=== PATIENT | female | born 1955 | race Caucasian/White ===

== ENCOUNTER 2017-02-25 14:35 | Inpatient (IN) | payer OTHER ==
[2017-02-25] MEDS ORDERED: BABY ASPIRIN 81 MG CHEW PO ONE (14:44)
[2017-02-25] MEDS ORDERED: NITRO-BID 2% UD PACKETS TOP ONE (14:44)
[2017-02-25] MEDS ORDERED: NITRO-BID 2% UD PACKETS ONE (14:56)
[2017-02-25] MEDS ORDERED: BABY ASPIRIN 81 MG CHEW ONE (14:56)
--- NOTE | 2017-02-25 15:07 | ERPHSYRPT ---
- History of Present Illness Time Seen by Provider: 02/25/17 14:42 Historian: patient Exam Limitations: no limitations Physician History: C/O chest pain left breast radiating to right chest for 1 week . Associated with dizziness. Pain is sharp 8/10 intensity now, but has been 10/10 intensity at times this past week. She has risk factor for CAD: Smoking. No cardiac workup or Hx. Timing/Duration: week(s) (1) Activities at Onset: none Quality: sharpness Location: central Severity of Pain-Max: severe Severity of Pain-Current: severe Modifying Factors: Improves With: nothing Associated Symptoms: dizziness Prior Chest Pain/Cardiac Workup: no prior cardiac workup Nitro Today/Relief: no nitro taken today Aspirin Treatment Today: no aspirin today Body Map: 1 - chest pain 2 - Radiating to right chest Allergies/Adverse Reactions: Penicillins Allergy (Severe, Verified 03/02/14 17:15) Hives affected vision, pt stated she couldnt see Sulfa (Sulfonamide Antibiotics) [Sulfa(Sulfonamide Antibiotics)] Allergy ( Intermediate, Verified 03/02/14 17:15) Hives Home Medications: No Home Meds [No Home Meds] 0 tab PO DAILY 03/02/14 [History] Hx Tetanus, Diphtheria Vaccination/Date Given: No (PT UNSURE) Hx Influenza Vaccination/Date Given: No Hx Pneumococcal Vaccination/Date Given: No - Review of Systems Constitutional: No Symptoms Eyes: No Symptoms Ears, Nose, & Throat: No Symptoms Respiratory: No Symptoms Cardiac: Chest Pain Abdominal/Gastrointestinal: No Symptoms, No Vomiting Musculoskeletal: No Symptoms Skin: No Symptoms Neurological: No Symptoms Psychological: No Symptoms Endocrine: No Symptoms Hematologic/Lymphatic: No Symptoms Immunological/Allergic: No Symptoms - Past Medical History Pertinent Past Medical History: Yes Neurological History: No Pertinent History ENT History: No Pertinent History Cardiac History: No Pertinent History Respiratory History: COPD Endocrine Medical History: No Pertinent History Musculoskeletal History: No Pertinent History GI Medical History: No Pertinent History, GERD History: No Pertinent History Psycho-Social History: Depression Female Reproductive Disorders: No Pertinent History - Past Surgical History Past Surgical History: Yes Neuro Surgical History: No Pertinent History Cardiac: No Pertinent History Respiratory: No Pertinent History Gastrointestinal: No Pertinent History Genitourinary: No Pertinent History Female Surgical History: Other Other Surgical History: D&C, TONSILS - Social History Smoking Status: Current every day smoker How long have you smoked: 45 Exposure to second hand smoke: Yes Drug Use: none Patient Lives Alone: No - Female History Hx Now: No - Nursing Vital Signs Nursing Vital Signs: Initial Vital Signs Temperature 97.9 F 02/25/17 14:35 Pulse Rate 67 02/25/17 14:35 Respiratory Rate 28 H 02/25/17 14:35 Blood Pressure 137/60 02/25/17 14:35 O2 Sat by Pulse Oximetry 95 02/25/17 14:35 Pain Scale Pain Intensity 8 - Physical Exam General Appearance: moderate distress Eye Exam: eyes nml inspection, No scleral icterus Ears, Nose, Throat Exam: normal ENT inspection, pharynx normal, moist mucous membranes Neck Exam: normal inspection, non-tender, supple, full range of motion Respiratory Exam: normal breath sounds, chest tenderness, lungs clear, airway intact Cardiovascular Exam: regular rate/rhythm, normal heart sounds, normal peripheral pulses Gastrointestinal/Abdomen Exam: soft, normal bowel sounds, No tenderness Back Exam: normal inspection, normal range of motion Extremity Exam: normal inspection, normal range of motion, pelvis stable Neurologic Exam: alert, oriented x 3, cooperative Skin Exam: normal color, warm, dry SpO2 Interpretation: normal SpO2: 95 - Course Nursing assessment & vital signs reviewed: Yes EKG Interpreted by Me: RATE (78), Sinus Rhythm, NORMAL AXIS Ordered Tests: Active Orders 24 hr Category Date Time Status [employer] STAT Care 02/25/17 14:45 Active EKG-ER Only STAT Care 02/25/17 14:44 Active IV Insertion STAT Care 02/25/17 14:44 Active Oxygen-ED Only NASAL CANNULA 2 lpm Care 02/25/17 14:44 Active CHEST 1 VIEW (PORTABLE) Stat Exams 02/25/17 14:44 Completed CBC W DIFF Stat Lab 02/25/17 15:00 Completed CK-Creatinine Phosphokinase Stat Lab 02/25/17 15:00 Received CMP Stat Lab 02/25/17 15:00 Received D-DIMER QUANTITATION Stat Lab 02/25/17 15:00 Received NT PRO BNP Stat Lab 02/25/17 15:00 Received PROTIME WITH INR Stat Lab 02/25/17 15:00 Received TROPONIN Q3H Lab 02/25/17 14:45 Ordered TROPONIN Q3H Lab 02/25/17 17:45 Ordered TROPONIN Q3H Lab 02/25/17 20:45 Ordered TROPONIN Q3H Lab 02/25/17 23:45 Ordered TROPONIN Q3H Lab 02/26/17 02:45 Ordered Medication Summary Generic Name Dose Route Start Last Admin Trade Name Freq PRN Reason Stop Dose Admin Ceftriaxone Sodium/Dextrose 1 g in 50 mls @ 100 mls/hr 02/25/17 15:24 15:27 Rocephin 1 Gm-D5w 50 Ml Bag IV 02/25/17 15:53 100 mls/hr STAT STA Administration Discontinued Medications Generic Name Dose Route Start Last Admin Trade Name Freq PRN Reason Stop Dose Admin Aspirin 324 mg 02/25/17 14:44 02/25/17 14:56 Baby Aspirin 81 Mg Chew PO 02/25/17 14:45 324 mg STAT ONE Administration Aspirin Confirm 02/25/17 14:56 Baby Aspirin 81 Mg Chew Administered 02/25/17 14:57 Dose 324 mg .ROUTE .STK-MED ONE Ceftriaxone Sodium/Dextrose Confirm 02/25/17 15:25 Rocephin 1 Gm-D5w 50 Ml Bag Administered 02/25/17 15:26 Dose 1 g in 50 mls @ ud IV .STK-MED ONE Nitroglycerin 1 gm 02/25/17 14:44 02/25/17 14:56 Nitro-Bid 2% Ud Packets TOP 02/25/17 14:45 1 gm STAT ONE Administration Nitroglycerin Confirm 02/25/17 14:56 Nitro-Bid 2% Ud Packets Administered 02/25/17 14:57 Dose 1 gm .ROUTE .STK-MED ONE Lab/Rad Data: Laboratory Result Diagrams 02/25/17 15:00 Laboratory Results 02/25/17 Range/Units 15:00 WBC 6.9 (4.0-10.5) K/mm3 RBC 4.23 (4.1-5.4) M/mm3 Hgb 12.6 (12.0-16.0) gm/dl Hct 40.1 (35-47) % MCV 94.8 (78-100) fl MCH 29.8 (26-32) pg MCHC 31.4 L (32-36) g/dl RDW 15.0 H (11.5-14.0) % Plt Count 386 (150-450) K/mm3 MPV 9.7 H (6-9.5) fl Gran % 57.1 (36.0-66.0) % Lymphocytes % 35.3 (24.0-44.0) % Monocytes % 5.6 (0.0-12.0) % Eosinophils % 1.7 (0.00-5.0) % Basophils % 0.3 (0.0-0.4) % Basophils # 0.02 (0-0.4) - Progress Progress: improved Air Movement: good Blood Culture(s) Obtained: Yes Antibiotics given: Yes Discussed with : Anna Counseled pt/family regarding: lab results, diagnosis, rad results - Departure Referrals: AALIYAH WHITTAKER [Primary Care Provider] -
[2017-02-25 15:08] LABS: BASOPHIL % 0.3 % (0.0-0.4); Eosinophil % 1.7 % (0.00-5.0); Granulocytes % 57.1 % (36.0-66.0); Lymphocytes % 35.3 % (24.0-44.0); Mean Cell Volume 94.8 fl (78-100); Mean Corpuscular Hemoglobin 29.8 pg (26-32); Mean Platelet Volume 9.7 fl (6-9.5); Monocytes % 5.6 % (0.0-12.0); Platelet Count 386 K/mm3 (150-450); Red Blood Count 4.23 M/mm3 (4.1-5.4); White Blood Count 6.9 K/mm3 (4.0-10.5)
--- NOTE | 2017-02-25 15:14 | XRAY ---
Indication: Chest pain. Short of breath. Comparison: March 02, 2014. Portable chest demonstrates new subtle right base infiltrate versus atelectasis. Remaining heart and lungs normal. Bony thorax intact.
[2017-02-25 15:24] LABS: INR 0.96 (0.8-3.0); PROTIME 10.8 SECONDS (9.95-12.35)
[2017-02-25] MEDS ORDERED: ROCEPHIN 1 Gm-D5w 50 ml Bag** 1 G/50 ML IVPB IV STA (15:24)
[2017-02-25] MEDS ORDERED: ROCEPHIN 1 Gm-D5w 50 ml Bag** 1 G/50 ML IVPB IV ONE (15:25)
[2017-02-25 15:49] LABS: ALBUMIN 3.1 g/dL (3.4-5.0); ANION GAP 13.8 MEQ/L (5-15); BILIRUBIN,TOTAL 0.4 mg/dL (0.2-1.0); Carbon Dioxide 26.2 mEq/L (21-32); Potassium 4.4 mEq/L (3.5-5.1)
[2017-02-25] MEDS ORDERED: Furosemide 100mg/10 ml Vial IV ONE (16:09)
[2017-02-25] MEDS ORDERED: ENOXAPARIN SODIUM SQ ONE (16:14)
[2017-02-25] MEDS ORDERED: Furosemide 100mg/10 ml Vial ONE (16:14)
[2017-02-25] MEDS ORDERED: ENOXAPARIN SODIUM SQ SCH (16:15)
[2017-02-25] MEDS ORDERED: Zofran 4 MG/2 ML VIAL IV PRN (16:55)
[2017-02-25] MEDS ORDERED: MORPHINE SULFATE 2 MG INJ IV PRN (16:55)
[2017-02-25] MEDS: Zithromax 500 MG/ 250 ML NaCl Premix 500 MG/250 ML IVPB IV SCH (17:33)
[2017-02-25] MEDS: PROVENTIL COMMON CANISTER IH PRN (21:13)
[2017-02-26] MEDS: PROVENTIL COMMON CANISTER IH PRN ×4 (02:54→21:57)
[2017-02-26] MEDS: ENOXAPARIN SODIUM SQ SCH ×2 (05:10→17:01)
[2017-02-26] MEDS: PROVENTIL 2.5 MG/3 ML NEB IH SCH ×3 (07:35→18:57)
--- NOTE | 2017-02-26 09:07 | PCM.HP ---
History of Present Illness - Chief Complaint Chief Complaint: chest pain, pneumonia, possible PE History of Present Illness: is a 61 year old female pt of mine from [facility] who has been short of breath with chest pain for the last 1 week. Chest pain is intermittent, L sided , 8/10, radiating to the neck at times. Causes SOB and palpitations. She was found to have an elevated d-dimer in the ER but as her Cr was 1.4 she could not have a CT of the chest to rule out PE. This morning she is not having chest pain. She is on O2. She does not feel well overall. She is c/o headache in the occiput. She has a chronic cough but no increase over the past few weeks. One week ago she saw the [employer] and was found to have an oral yeast infection, pt thinks due to change in her inhaler. She was started on nystatin and this is when the SILVA and CP started. - Review of Systems Constitutional: Fever (s), Fatigue Ears, Nose, & Throat: Throat Pain, Other (chronic hearing loss on R) Respiratory: Cough (chronic), Short Of Breath (1 wk) Cardiac: Chest Pain, Palpitations Neurological: Headache All Other Systems: Reviewed and Negative Medications & Allergies Home Medications: Home Medication List Albuterol 2.5 mg/3 ml Neb [Proventil 2.5 mg/3 ml Neb] 2.5 mg IH TID PRN PRN 02/25/17 [History Confirmed 02/25/17] Albuterol 8 gm Mdi Hfa [Ventolin Hfa MDI] 2 puff IH Q4HPRN PRN 02/25/17 [ History Confirmed 02/25/17] Nystatin 60 ml [Nystatin SUSPENSION 60 ML] 5 ml PO QID 02/25/17 [History Confirmed 02/25/17] Allergies/Adverse Reactions: Allergies Allergy/AdvReac Type Severity Reaction Status Date / Time Penicillins Allergy Severe Hives Verified 02/25/17 16:47 Sulfa (Sulfonamide Allergy Intermediate Hives Verified 02/25/17 16:47 Antibiotics) [Sulfa(Sulfonamide Antibiotics)] - Past Medical History Past Medical History: Yes Neurological History: No Pertinent History, TIA ENT History: No Pertinent History Cardiac History: No Pertinent History Respiratory History: COPD Endocrine Medical History: No Pertinent History Musculoskelatal History: Arthritis GI Medical History: No Pertinent History, GERD, Ulcer History: No Pertinent History Pyscho-Social History: Depression Reproductive Disorders: No Pertinent History - Female History Are you now?: No - Past Surgical History Past Surgical History: Yes Neuro Surgical History: No Pertinent History Cardiac History: No Pertinent History Respiratory Surgery: No Pertinent History GI Surgical History: No Pertinent History Genitourinary Surgical Hx: No Pertinent History Musculskeletal Surgical Hx: No Pertinent History, Amputation Female Surgical History: Other Other Surgical History: D&C, TONSILS, - Social History Smoking Status: Current every day smoker How long have you smoked: 48years Exposure to second hand smoke: Yes Alcohol: None Drug Use: none - Physical Exam Vital Signs: Vital Signs - 24 hr Temp Pulse Pulse Resp BP Pulse Ox 02/26/17 07:51 75 20 92 L 02/26/17 07:05 98.1 F 66 20 109/52 93 L 02/26/17 04:00 17 02/26/17 03:58 98.0 F 74 17 113/59 90 L 02/26/17 02:54 74 17 02/26/17 00:05 98.5 F 75 20 96/55 93 L 02/26/17 00:00 20 02/25/17 21:13 75 19 94 L 02/25/17 20:10 97.9 F 78 20 98/71 96 02/25/17 20:00 20 02/25/17 17:09 98.3 F 72 18 137/78 95 02/25/17 16:55 98.3 F 72 18 137/78 95 02/25/17 16:45 98.3 F 72 137/78 02/25/17 16:42 98.3 F 72 18 137/78 95 02/25/17 16:29 65 24 103/59 95 02/25/17 15:58 59 L 18 134/70 97 02/25/17 15:57 95 02/25/17 15:41 97 H 24 110/64 97 02/25/17 14:37 95 H 02/25/17 14:35 97.9 F 67 28 H 137/60 95 Oxygen-Last 24 hours O2 Percentage 2 Liters = 28% O2 Percentage 2 Liters = 28% O2 Percentage 2 Liters = 28% O2 Percentage 2 Liters = 28% O2 Percentage 2 Liters = 28% O2 Percentage 2 Liters = 28% O2 Percentage 2 Liters = 28% O2 Percentage 2 Liters = 28% O2 Percentage 2 Liters = 28% O2 Percentage 2 Liters = 28% O2 Percentage 2 Liters = 28% O2 Percentage 2 Liters = 28% General Appearance: no apparent distress Neurologic Exam: alert, oriented x 3, cooperative Eye Exam: eyes nml inspection Ears, Nose, Throat Exam: moist mucous membranes Neck Exam: normal inspection, other (ttp on the L), No lymphadenopathy Respiratory Exam: normal breath sounds, No crackles/rales, No rhonchi, No wheezing Cardiovascular Exam: regular rate/rhythm, normal heart sounds, No murmur Gastrointestinal/Abdomen Exam: soft, No tenderness, No distention, No mass Back Exam: normal inspection Extremity Exam: No pedal edema, No swelling Skin Exam: normal color, warm, dry Results - Labs Lab/Micro Results: Lab Results-Last 24 Hours 02/25/17 02/25/17 02/25/17 Range/Units 18:12 21:00 23:57 Troponin I < 0.017 < 0.017 < 0.017 (0.000-0.056) ng/ml 02/26/17 Range/Units 03:04 Troponin I < 0.017 (0.000-0.056) ng/ml - Other Procedures and Tests Respiratory Therapy 02/25/17 21:00 Respiratory MDI PRN 02/25/17 22:34 Oxygen NASAL CANNULA 2 lpm 02/26/17 07:00 Respiratory Nebulizer BID Assessment/Plan (1) Chest pain Current Visit: Yes Status: Acute Assessment & Plan: Ruling out for NE. Also concerned about PE; she was unable to get a CT due to Creatinine of 1.44, so will get a VQ scan tomorrow. Code(s): R07.9 - CHEST PAIN, UNSPECIFIED (2) Shortness of breath Current Visit: Yes Status: Acute Assessment & Plan: On O2 currently Code(s): R06.02 - SHORTNESS OF BREATH (3) Headache Current Visit: Yes Status: Acute Qualifiers: Headache type: unspecified Headache chronicity pattern: acute headache Intractability: not intractable Qualified Code(s): R51 - Headache Assessment & Plan: new over the past [address] head no contrast. Code(s): R51 - HEADACHE (4) Obesity Current Visit: Yes Status: Acute Qualifiers: Obesity type: due to excess calories Code(s): E66.9 - OBESITY, UNSPECIFIED
[2017-02-26] MEDS ORDERED: MOTRIN 600 MG PO PRN (09:12)
[2017-02-26] MEDS: ROCEPHIN 1 Gm-D5w 50 ml Bag** 1 G/50 ML IVPB IV SCH (09:36)
--- NOTE | 2017-02-26 11:13 | XRAY ---
Indication: Daily headaches for 1-2 weeks. Multiple contiguous axial images obtained through the head without contrast. Comparison: March 02, 2014. Stable minimal periventricular degenerative micro-ischemia bilaterally. No acute intracranial hemorrhage, abnormal extra-axial fluid collection, or mass effect. Real-white matter differentiation preserved. Both lateral ventricles remain prominent unchanged. Third and fourth ventricles remain normal.. Bony calvarium intact. Visualized paranasal sinuses and mastoid air cells are clear. Impression: Stable prominent lateral ventricles and minimal periventricular degenerative micro-ischemia. No new or acute intracranial abnormalities. CT DI 68.98
[2017-02-26] MEDS: Zithromax 500 MG/ 250 ML NaCl Premix 500 MG/250 ML IVPB IV SCH (17:02)
[2017-02-26] MEDS: Lopressor 25MG Tab PO SCH (22:25)
[2017-02-27] MEDS: PROVENTIL COMMON CANISTER IH PRN ×3 (03:21→16:15)
[2017-02-27] MEDS: ENOXAPARIN SODIUM SQ SCH ×2 (05:57→18:04)
[2017-02-27] MEDS: PROVENTIL 2.5 MG/3 ML NEB IH SCH (06:49)
--- NOTE | 2017-02-27 08:47 | PCM.NOTE ---
Date and Time: 02/27/17841 Subjective Assessment: Last night she was complaining of palpitations and had some bigeminy and apparent atrial flutter on telemetry. She received metoprolol 25mg and was improved. She was bradycardic into the 40s, but HR was in the 50s at times even before she started the metoprolol. She has seen a craft recruiter sometime in [facility], over a year ago, she cannot remember who. Still having intermittent SOB. Objective Exam General Appearance: no apparent distress Neurologic Exam: alert, oriented x 3, cooperative Skin Exam: normal color, warm, dry Respiratory Exam: normal breath sounds, lungs clear, wheezing (faint scattered) , other (scattered lung sounds cleared by coughing), No rhonchi, No stridor Cardiovascular Exam: normal heart sounds, bradycardia (reg rhythm), No murmur Gastrointestinal/Abdomen Exam: soft, normal bowel sounds, No tenderness Extremity Exam: No pedal edema, No swelling OBJECTIVE DATA Vital Signs: Vital Signs - 24 hr Temp Pulse Resp BP Pulse Ox 02/27/17 07:00 98.6 F 54 L 18 90/54 92 L 02/27/17 06:51 53 L 20 94 L 02/27/17 03:21 50 L 20 93 L 02/27/17 03:00 98.3 F 52 L 20 114/51 91 L 02/26/17 23:00 98.8 F 54 L 19 94/51 94 L 02/26/17 21:57 61 20 97 02/26/17 19:00 98.5 F 70 19 107/56 93 L 02/26/17 18:57 66 18 94 L 02/26/17 16:00 20 02/26/17 15:46 97.9 F 64 20 105/56 90 L 02/26/17 12:00 20 02/26/17 11:46 98.3 F 70 20 119/56 90 L 02/26/17 10:00 91 H 20 94 L Oxygen-Last 24 hours O2 Percentage 2 Liters = 28% O2 Percentage 2 Liters = 28% O2 Percentage 2 Liters = 28% O2 Percentage 2 Liters = 28% O2 Percentage 2 Liters = 28% O2 Percentage 2 Liters = 28% Pain Assessment - Last Documented Pain Intensity 0 Pain Scale Used 0-10 Pain Scale Intake and Output: Intake & Output 02/24/17 02/25/17 02/26/17 02/27/17 11:59 11:59 11:59 11:59 Intake Total 850 2500 Output Total 3150 700 Balance -2300 1800 Weight 134.808 kg 136.395 kg Radiology Exams: Radiology Procedures Category Date Time Status HEAD WITHOUT CONTRAST [CT] Routine Exams 02/26/17 09:11 Completed PULMONARY PERF VENTILATION [NUCMED] Routine Exams 02/27/17 Ordered Assessment/Plan (1) Chest pain Current Visit: Yes Status: Acute Assessment & Plan: OR ruled out. Await VQ scan today to r/o PE. Code(s): R07.9 - CHEST PAIN, UNSPECIFIED (2) Shortness of breath Current Visit: Yes Status: Acute Assessment & Plan: intermittent. Code(s): R06.02 - SHORTNESS OF BREATH (3) Headache Current Visit: Yes Status: Resolved Qualifiers: Headache type: unspecified Headache chronicity pattern: acute headache Intractability: not intractable Qualified Code(s): R51 - Headache Code(s): R51 - HEADACHE (4) Obesity Current Visit: Yes Status: Chronic Qualifiers: Obesity type: due to excess calories Code(s): E66.9 - OBESITY, UNSPECIFIED (5) Arrhythmia Current Visit: Yes Status: Acute Qualifiers: Arrhythmia type: atrial flutter Atrial flutter type: atypical Qualified Code(s): I48.4 - Atypical atrial flutter Assessment & Plan: Keep pt on telemetry; I await the VQ scan as this may determine whether pt will remain here or be transferred out for further treatment. I may need to speak with cardiology and have the patient follow with them. Code(s): I49.9 - CARDIAC ARRHYTHMIA, UNSPECIFIED
[2017-02-27] MEDS: ROCEPHIN 1 Gm-D5w 50 ml Bag** 1 G/50 ML IVPB IV SCH (09:02)
[2017-02-27] MEDS: Lopressor 25MG Tab PO SCH ×2 (09:05→21:11)
[2017-02-27 09:43] LABS: BASOPHIL % 0.5 % (0.0-0.4); Eosinophil % 1.4 % (0.00-5.0); Granulocytes % 53.3 % (36.0-66.0); Lymphocytes % 38.9 % (24.0-44.0); Mean Cell Volume 95.5 fl (78-100); Mean Platelet Volume 9.9 fl (6-9.5); Monocytes % 5.9 % (0.0-12.0); Platelet Count 345 K/mm3 (150-450); Red Blood Count 3.76 M/mm3 (4.1-5.4); Red Cell Distribution Width 15.1 % (11.5-14.0); White Blood Count 6.3 K/mm3 (4.0-10.5)
[2017-02-27 09:44] LABS: Mean Corpuscular Hemoglobin 29.7 pg (26-32)
[2017-02-27 10:22] LABS: ANION GAP 12.1 MEQ/L (5-15); Carbon Dioxide 29.8 mEq/L (21-32); Potassium 3.8 mEq/L (3.5-5.1)
--- NOTE | 2017-02-27 13:46 | XRAY ---
Indication: Chest pain and short of breath. Comparison: None Patient received 3.9 mCi of technetium 99 microaggregated albumin for the perfusion portion of the exam. Patient inhaled approximately 33.4 mCi of aerosolized technetium 99 DTPA for the ventilation portion. Multiplanar images obtained. Perfusion images demonstrates bilateral homogeneous radiopharmaceutical activity without focal lobar or segmental defects. Ventilation images demonstrates bilaterally heterogeneous radiopharmaceutical activity predominantly more central favoring chronic obstructive disease. There is also small amount of ingested radiopharmaceutical activity in the GI tract. Impression: No perfusion defects to suggest pulmonary embolus. Ventilation images favor chronic obstructive disease.
[2017-02-27] MEDS: Zithromax 500 MG/ 250 ML NaCl Premix 500 MG/250 ML IVPB IV SCH (18:04)
[2017-02-27] MEDS: PROVENTIL COMMON CANISTER IH SCH (19:26)
[2017-02-28 06:01] LABS: Mean Cell Volume 95.5 fl (78-100); Mean Platelet Volume 10.1 fl (6-9.5); Platelet Count 378 K/mm3 (150-450); White Blood Count 6.7 K/mm3 (4.0-10.5)
[2017-02-28 06:20] LABS: Mean Corpuscular Hemoglobin 29.2 pg (26-32)
[2017-02-28 06:37] LABS: ANION GAP 12.8 MEQ/L (5-15); BILIRUBIN,TOTAL 0.3 mg/dL (0.2-1.0); Carbon Dioxide 29.2 mEq/L (21-32); Potassium 4.5 mEq/L (3.5-5.1); Total Protein 7.5 gm/dL (6.4-8.2)
[2017-02-28] MEDS: ENOXAPARIN SODIUM SQ SCH (06:42)
[2017-02-28] MEDS: PROVENTIL COMMON CANISTER IH SCH ×2 (06:51→19:23)
[2017-02-28] MEDS ORDERED: Lopressor 25MG Tab PO SCH (08:40)
--- NOTE | 2017-02-28 08:51 | PCM.NOTE ---
Date and Time: 02/28/17838 Subjective Assessment: she continues to feel poorly. Has not really been up out of bed, aside from going to the bathroom. She is on 2L NC at home. C/o increase in L sided throat pain this morning. Had bradycardia overnight into the 40s and 50s. She states she has a feeling of not being able to wake up when she's asleep, but she cannot explain more than that. Objective Exam General Appearance: no apparent distress Neurologic Exam: alert, oriented x 3, cooperative Skin Exam: normal color, warm, dry Neck Exam: other (L anterior neck ttp, no lesions) Respiratory Exam: normal breath sounds, No crackles/rales, No rhonchi, No wheezing Cardiovascular Exam: regular rate/rhythm, normal heart sounds, No murmur Extremity Exam: No pedal edema, No swelling OBJECTIVE DATA Vital Signs: Vital Signs - 24 hr Temp Pulse Resp BP Pulse Ox 02/28/17 07:00 98.5 F 48 L 18 127/61 92 L 02/28/17 06:56 53 L 18 94 L 02/28/17 04:00 19 02/28/17 03:00 98.1 F 49 L 19 117/62 94 L 02/28/17 00:00 20 02/27/17 23:00 97.7 F 50 L 20 88/53 97 02/27/17 20:00 19 02/27/17 19:30 58 L 18 95 02/27/17 19:00 97.8 F 65 19 116/59 92 L 02/27/17 16:22 53 L 18 95 02/27/17 11:00 97.7 F 56 L 22 109/53 92 L Oxygen-Last 24 hours O2 Percentage 2 Liters = 28% O2 Percentage 2 Liters = 28% O2 Percentage 2 Liters = 28% O2 Percentage 2 Liters = 28% O2 Percentage 2 Liters = 28% Pain Assessment - Last Documented Pain Intensity 0 Pain Scale Used 0-10 Pain Scale Intake and Output: Intake & Output 02/25/17 02/26/17 02/27/17 02/28/17 11:59 11:59 11:59 11:59 Intake Total 850 2500 1020 Output Total 3150 700 550 Balance -2300 1800 470 Weight 134.808 kg 136.395 kg 137.62 kg Lab Results: Lab Results-Last 24 Hours 02/27/17 02/27/17 02/28/17 Range/Units 09:30 09:30 05:20 WBC 6.3 6.7 (4.0-10.5) K/mm3 RBC 3.76 L 4.00 L (4.1-5.4) M/mm3 Hgb 11.2 L 11.7 L (12.0-16.0) gm/dl Hct 35.9 38.2 (35-47) % MCV 95.5 95.5 (78-100) fl MCH 29.7 29.2 (26-32) pg MCHC 31.2 L 30.6 L (32-36) g/dl RDW 15.1 H 15.0 H (11.5-14.0) % Plt Count 345 378 (150-450) K/mm3 MPV 9.9 H 10.1 H (6-9.5) fl Gran % 53.3 (36.0-66.0) % Lymphocytes % 38.9 (24.0-44.0) % Monocytes % 5.9 (0.0-12.0) % Eosinophils % 1.4 (0.00-5.0) % Basophils % 0.5 (0.0-0.4) % Basophils # 0.03 (0-0.4) Sodium 140 (136-145) mEq/L Potassium 3.8 (3.5-5.1) mEq/L Chloride 102 (98-107) mEq/L Carbon Dioxide 29.8 (21-32) mEq/L Anion Gap 12.1 (5-15) MEQ/L BUN 25 H (9-20) mg/dL Creatinine 1.50 H (0.55-1.30) mg/dl Estimated GFR 38 ML/MIN Glucose 159 H (70-110) MG/DL Calcium 9.0 (8.5-10.1) mg/dL Total Bilirubin (0.2-1.0) mg/dL AST (15-37) U/L ALT (12-78) U/L Alkaline Phosphatase (46-116) U/L NT-Pro-B Natriuret Pep 724 H (0-125) pg/ml Serum Total Protein (6.4-8.2) gm/dL Albumin (3.4-5.0) g/dL 02/28/17 Range/Units 05:20 WBC (4.0-10.5) K/mm3 RBC (4.1-5.4) M/mm3 Hgb (12.0-16.0) gm/dl Hct (35-47) % MCV (78-100) fl MCH (26-32) pg MCHC (32-36) g/dl RDW (11.5-14.0) % Plt Count (150-450) K/mm3 MPV (6-9.5) fl Gran % (36.0-66.0) % Lymphocytes % (24.0-44.0) % Monocytes % (0.0-12.0) % Eosinophils % (0.00-5.0) % Basophils % (0.0-0.4) % Basophils # (0-0.4) Sodium 138 (136-145) mEq/L Potassium 4.5 (3.5-5.1) mEq/L Chloride 100 (98-107) mEq/L Carbon Dioxide 29.2 (21-32) mEq/L Anion Gap 12.8 (5-15) MEQ/L BUN 29 H (9-20) mg/dL Creatinine 1.43 H (0.55-1.30) mg/dl Estimated GFR 40 ML/MIN Glucose 95 (70-110) MG/DL Calcium 9.0 (8.5-10.1) mg/dL Total Bilirubin 0.30 (0.2-1.0) mg/dL AST 17 (15-37) U/L ALT 16 (12-78) U/L Alkaline Phosphatase 84 (46-116) U/L NT-Pro-B Natriuret Pep 731 H (0-125) pg/ml Serum Total Protein 7.5 (6.4-8.2) gm/dL Albumin 3.0 L (3.4-5.0) g/dL Radiology Exams: Radiology Procedures Category Date Time Status HEAD WITHOUT CONTRAST [CT] Routine Exams 02/26/17 09:11 Completed PULMONARY PERF VENTILATION [NUCMED] Routine Exams 02/27/17 Completed Multi-Disciplinary Progress Notes: Multi-Disciplinary Progress Notes 02/27/17 15:07 Pharmacy Note by PLANT OPERATOR,PHARM Patient is currently on therapeutic dose Lovenox therapy, 100mg Q12H. VQ Scan negative, does patient still need therapeutic dose? Krys Jean Corrugator Machine Operator Initialized on 02/27/17 15:07 - END OF NOTE Assessment/Plan (1) Arrhythmia Current Visit: Yes Status: Acute Qualifiers: Arrhythmia type: atrial flutter Atrial flutter type: atypical Qualified Code(s): I48.4 - Atypical atrial flutter Assessment & Plan: Better on the toprol, will decrease it however to 12.5 mg po BID due to bradycardia. Code(s): I49.9 - CARDIAC ARRHYTHMIA, UNSPECIFIED (2) Chest pain Current Visit: Yes Status: Acute Assessment & Plan: CT and PE have been ruled out. Code(s): R07.9 - CHEST PAIN, UNSPECIFIED (3) Shortness of breath Current Visit: Yes Status: Acute Assessment & Plan: Will have PT get her up today and see how she does. She's on her home oxygen level. Code(s): R06.02 - SHORTNESS OF BREATH (4) Headache Current Visit: Yes Status: Resolved Qualifiers: Headache type: unspecified Headache chronicity pattern: acute headache Intractability: not intractable Qualified Code(s): R51 - Headache Code(s): R51 - HEADACHE (5) Obesity Current Visit: Yes Status: Chronic Qualifiers: Obesity type: due to excess calories Code(s): E66.9 - OBESITY, UNSPECIFIED (6) Bradycardia Current Visit: Yes Status: Acute Assessment & Plan: Decreasing toprol as above. On telemetry. Code(s): R00.1 - BRADYCARDIA, UNSPECIFIED (7) Throat pain Current Visit: Yes Status: Acute Assessment & Plan: nothing visible on exam, but will resume tx for thrush. Code(s): R07.0 - PAIN IN THROAT
[2017-02-28] MEDS: Nystatin SUSPENSION 60 ML PO SCH ×4 (10:19→22:57)
[2017-02-28] MEDS: ROCEPHIN 1 Gm-D5w 50 ml Bag** 1 G/50 ML IVPB IV SCH (10:19)
[2017-02-28] MEDS: Zithromax 500 MG/ 250 ML NaCl Premix 500 MG/250 ML IVPB IV SCH (17:53)
[2017-03-01] MEDS: PROVENTIL COMMON CANISTER IH SCH (07:25)
[2017-03-01] MEDS: Nystatin SUSPENSION 60 ML PO SCH ×2 (09:23→12:55)
[2017-03-01] MEDS: ROCEPHIN 1 Gm-D5w 50 ml Bag** 1 G/50 ML IVPB IV SCH (09:24)
[2017-03-01] MEDS ORDERED: ENOXAPARIN SODIUM SQ SCH (10:00)
--- NOTE | 2017-03-01 11:46 | PCM.DS ---
Discharge Summary Date of Admission: 02/27/17 08:42 Admitting Physician: AALIYAH WHITTAKER Primary Care Provider: AALIYAH WHITTAKER Allergies Allergies Penicillins Allergy (Severe, Verified 02/25/17 16:47) Hives affected vision, pt stated she couldnt see Sulfa (Sulfonamide Antibiotics) [Sulfa(Sulfonamide Antibiotics)] Allergy ( Intermediate, Verified 02/25/17 16:47) [facility] Summary - Hospital Course Hospital Course: Pt admitted to hospital through the ER with chest pain and shortness of breath; d-dimer found to be elevated. VQ scan was negative for PE. U/S negative for DVTs. She is being treated for pneumonia. She was SOB until yesterday; now she is on her home oxygen dose and breathing is at baseline. She notes she couldn't sleep at night well for some time, had SOB and anxiety when she would sleep; this has resolved. Two days ago she had episodes of palpitations and on telemetry had a 1.9 second pause with an episode characteristic of atrial flutter. She was started on po metoprolol but she became bradycardic and mildly hypotensive so this was discontinued. I did speak with Dr. Montez and she will follow up with him next week in the office. Today she is just feeling tired, no other complaints. - Vitals & Intake/Output Vital Signs: Vital Signs Temperature 98.6 F 03/01/17 07:00 Pulse Rate 60 03/01/17 08:06 Respiratory Rate 20 03/01/17 08:45 Blood Pressure 114/54 03/01/17 07:00 O2 Sat by Pulse Oximetry 93 L 03/01/17 08:06 Oxygen-Last Documented O2 Percentage 2 Liters = 28% Intake & Output: Intake & Output 02/26/17 02/27/17 02/28/17 03/01/17 11:59 11:59 11:59 11:59 Intake Total 1020 720 Output Total 550 670 Balance 470 50 Weight 137.62 kg - Lab Result Diagrams: 02/28/17 05:20 02/28/17 05:20 - Procedures and Test Procedures and Tests throughout Hospitalization: Therapy Orders & Screens 02/28/17 08:51 PT Eval & Treat ( Order) ROUTINE Evaluate: Yes Treat: Yes Reason for Eval:: bruner Diagnosis: symptomatic dysrhythmia Discharge Exam General Appearance: no apparent distress, obese Neurologic Exam: alert, oriented x 3, cooperative Skin Exam: normal color, warm, dry Eye Exam: eyes nml inspection Respiratory Exam: normal breath sounds, lungs clear, prolonged expirations, No rhonchi, No wheezing Cardiovascular Exam: regular rate/rhythm, normal heart sounds, No murmur Gastrointestinal/Abdomen Exam: soft, normal bowel sounds, No tenderness, No distention, No mass Extremity Exam: No pedal edema, No swelling, No tenderness Final Diagnosis/Problem List - Final Discharge Diagnosis/Problem (1) Pneumonia Current Visit: Yes Status: Acute Assessment & Plan: On zithromax and rocephin; will send pt home on omnicef. (2) COPD exacerbation Current Visit: Yes Status: Acute Assessment & Plan: Did not require steroids to treat. No wheezing. (3) Chest pain Current Visit: Yes Status: Acute Assessment & Plan: OH and PE were ruled out. (4) Shortness of breath Current Visit: Yes Status: Chronic Assessment & Plan: Improved. I think likely due to respiratory infection. She will always have some SOB at baseline due to her lung disease. (5) Headache Current Visit: Yes Status: Resolved (6) Obesity Current Visit: Yes Status: Chronic (7) Bradycardia Current Visit: Yes Status: Acute Assessment & Plan: Improved off the metoprolol. (8) Arrhythmia Current Visit: Yes Status: Acute Assessment & Plan: No further arrrhythmia. Had a short episode characteristic of atrial flutter. Was having frequent feeling of palpitations but hasn't had any for the past day or so. Follow up with Dr. Montez next week. (9) Chronic hypoxemic respiratory failure Current Visit: Yes Status: Acute Assessment & Plan: On 2L O2 at home; back to baseline here. (10) Thrush of mouth and esophagus Current Visit: Yes Status: Acute Assessment & Plan: Was on nystatin at home; I stopped it for a few days due to concerns about side effects (pt had already been treated almost a week). She started complaining of throat pain again so I restarted the nystatin yesterday. She is feeling better today. - Discharge Disposition: Home, Self-Care Condition: Stable Prescriptions: New Cefdinir 300 mg PO BID #14 capsule Nystatin 60 ml [Nystatin SUSPENSION 60 ML] 5 ml PO QID 7 Days #1 bottle Continue Albuterol 2.5 mg/3 ml Neb [Proventil 2.5 mg/3 ml Neb] 2.5 mg IH TID PRN PRN PRN Reason: wheezing Albuterol 8 gm Mdi Hfa [Ventolin Hfa MDI] 2 puff IH Q4HPRN PRN PRN Reason: wheezing Nystatin 60 ml [Nystatin SUSPENSION 60 ML] 5 ml PO QID Follow up with: MICHELLE MONTEZ [ACTIVE STAFF] - 03/07/17 11:30 am AALIYAH WHITTAKER [Primary Care Provider] - 03/12/17 10:15 am
[2017-03-01 12:09] VITALS: BP 125/59; PULSE 62; O2SAT 91
== END 2017-03-01 13:30 | disposition home or self-care (01) | DRG 194 ==
LOC: ED 14:35 → MED SURG 16:35 → OBSVTOIN 02-27 08:42
PROVIDERS: ADMIT Family Medicine; ATTEND Family Medicine
DX: J18.9 Pneumonia, unspecified organism (principal); J44.1 Chronic obstructive pulmonary disease with (acute) exacerbation; I48.92 Unspecified atrial flutter; J96.11 Chronic respiratory failure with hypoxia; B37.0 Candidal stomatitis; B37.89 Other sites of candidiasis; R07.9 Chest pain, unspecified; E66.9 Obesity, unspecified; Z99.81 Dependence on supplemental oxygen; Z86.73 Personal history of transient ischemic attack (TIA), and cerebral infarction without residual deficits; M19.90 Unspecified osteoarthritis, unspecified site; K21.9 Gastro-esophageal reflux disease without esophagitis; R07.0 Pain in throat; Z72.0 Tobacco use
CPT/HCPCS: 36000; 36415; 70450; 71010; 78582; 80048; 80053; 82550; 83880; 84484; 85025; 85027; 85379; 85610; 93005; 93041; 93268; 94640; 94760; 96365; 96372; 96374; 96375; 99285; A9540; A9567; G0378; J0456; J0696; J1650; J1940; A9270-GY

== ENCOUNTER 2017-05-12 01:42 | Emergency (ER) | payer OTHER ==
[2017-05-12 02:03] VITALS: O2SAT 96
--- NOTE | 2017-05-12 02:17 | ERPHSYRPT ---
- History of Present Illness Time Seen by Provider: 05/12/17 02:04 Source: patient Exam Limitations: no limitations Patient Subjective Stated Complaint: pt states approx 30 mins [employer] the kitchen chair she was sitting on broke and fell from under her, states she hit her head on a galvanized cooker. reports she did not lose consciousness. states she has severe to pain to the right temporal/ear region. Triage Nursing Assessment: pt is aox3, pupils perrl, pt is short of breath with exertion, which is normal per patient, pt moves all extremities freely, no weakness noted, radial pulses strong and equal, a small knot is palpated behind the right ear. tenderness upon palpation. no open area noted, no bruising seen. Physician History: This is a 61-year-old white female with history of COPD GERD and depression. She arrives with complaint of pain in the right occipital parietal region symptoms since 30 minutes prior to arrival. According to the patient she was sitting in a chair which broke and she struck the back of her head on an old galvanized cooker. Patient states she has pain which she thinks is fairly severe in the right occipital parietal region she states feels like she has a step off and some swelling on the posterior right occipital parietal region. She denies loss of consciousness she denies neck pain. She is not having any sensory deficits. Past medical history includes COPD, GERD, depression. Past surgical history includes D&C, tonsils. Social history includes tobacco use. Timing/Duration: today (30 minutes prior to arrival) Severity: moderate Modifying Factors: Improves With: nothing Associated Symptoms: headaches, other (pain right posterior superoparietal region), No nausea, No vomiting, No abdominal pain, No shortness of breath, No heartburn, No diaphoresis, No cough, No chills, No chest pain, No fever, No loss of appetite, No malaise, No rash, No syncope, No seizure, No weakness Allergies/Adverse Reactions: Penicillins Allergy (Severe, Verified 05/12/17 02:02) Hives affected vision, pt stated she couldnt see Sulfa (Sulfonamide Antibiotics) [Sulfa(Sulfonamide Antibiotics)] Allergy ( Intermediate, Verified 05/12/17 02:02) Hives Home Medications: Albuterol 2.5 mg/3 ml Neb [Proventil 2.5 mg/3 ml Neb] 2.5 mg IH TID PRN PRN 02/25/17 [History] Albuterol 8 gm Mdi Hfa [Ventolin Hfa MDI] 2 puff IH Q4HPRN PRN 02/25/17 [ History] Nystatin 60 ml [Nystatin SUSPENSION 60 ML] 5 ml PO QID 02/25/17 [History] Hx Tetanus, Diphtheria Vaccination/Date Given: No Hx Influenza Vaccination/Date Given: No Hx Pneumococcal Vaccination/Date Given: No Immunizations Up to Date: Yes - Review of Systems Constitutional: No Fever, No Chills Eyes: No Symptoms Ears, Nose, & Throat: No Symptoms Respiratory: No Cough, No Dyspnea Cardiac: No Chest Pain, No Edema, No Syncope Abdominal/Gastrointestinal: No Abdominal Pain, No Nausea, No Vomiting, No Diarrhea Genitourinary Symptoms: No Dysuria Musculoskeletal: Fall, No Back Pain, No Neck Pain Skin: No Rash Neurological: Headache, Other (Pain right posterior occipital parietal region), No Dizziness, No Focal Weakness, No Gait Changes, No Irritability, No Lethargy, No Paralysis, No Parasthesia, No Seizure, No Sensory Changes, No Speech Changes , No Tics, No Tremors, No Vertigo Psychological: No Symptoms Endocrine: No Symptoms All Other Systems: Reviewed and Negative - Past Medical History Pertinent Past Medical History: Yes Neurological History: No Pertinent History, TIA ENT History: No Pertinent History Cardiac History: No Pertinent History Respiratory History: COPD Endocrine Medical History: No Pertinent History Musculoskeletal History: Arthritis GI Medical History: No Pertinent History, GERD, Ulcer History: Renal Disease Psycho-Social History: Depression Female Reproductive Disorders: No Pertinent History - Past Surgical History Past Surgical History: Yes Neuro Surgical History: No Pertinent History Cardiac: No Pertinent History Respiratory: No Pertinent History Gastrointestinal: No Pertinent History Genitourinary: No Pertinent History Musculoskeletal: No Pertinent History, Amputation Female Surgical History: Tubal Ligation, Other Other Surgical History: D&C, TONSILS, - Social History Smoking Status: Current every day smoker How long have you smoked: 48years Exposure to second hand smoke: Yes Drug Use: none Patient Lives Alone: No - Female History Hx Now: No - Nursing Vital Signs Nursing Vital Signs: Initial Vital Signs Temperature 97.7 F 05/12/17 01:46 Pulse Rate 99 H 05/12/17 01:46 Respiratory Rate 24 05/12/17 01:46 Blood Pressure 148/90 05/12/17 01:46 O2 Sat by Pulse Oximetry 96 05/12/17 01:46 Pain Scale Pain Intensity 7 - Physical Exam General Appearance: mild distress, obese, other (right posterior occipital parietal region mild edema , tenderness with palpation), No moderate distress, No severe distress, No alert, No anxiety, No lethargy, No cachetic, No thin Eye Exam: PERRL/EOMI, eyes nml inspection Ears, Nose, Throat Exam: normal ENT inspection, TMs normal, pharynx normal, moist mucous membranes Neck Exam: normal inspection, non-tender, supple, full range of motion Respiratory Exam: normal breath sounds, lungs clear, No respiratory distress Cardiovascular Exam: regular rate/rhythm, normal heart sounds, normal peripheral pulses Gastrointestinal/Abdomen Exam: soft, normal bowel sounds, No tenderness, No mass Back Exam: normal inspection, normal range of motion, No CVA tenderness, No vertebral tenderness Extremity Exam: normal inspection, normal range of motion, pelvis stable Neurologic Exam: alert, oriented x 3, cooperative, normal mood/affect, nml cerebellar function, nml station & gait, sensation nml, No motor deficits Skin Exam: normal color, warm, dry, No rash Lymphatic Exam: No adenopathy SpO2 Interpretation: normal (96%) SpO2: 96 Oxygen Delivery: Room Air - Course Nursing assessment & vital signs reviewed: Yes - CT Exams Head CT Interpretation: Tele-radiologist Report (head CT without contrast: Impression : 1. No intracranial hemorrhage 2. Age-related cerebral volume loss likely related to white matter ischemic disease. 3. Incidental nonacute findings bones unremarkable no acute fracture) Ordered Tests: Active Orders 24 hr Category Date Time Status HEAD WITHOUT CONTRAST [CT] Stat Exams 05/12/17 02:10 Taken - Progress Progress: improved Progress Note: 05/12/17 02:16 61-year-old white female arrives with complaint of moderate pain to her right posterior occipital parietal region symptoms for 30 minutes. Patient states she was sitting in a chair when one of the legs broke she struck the back of her head on an old [employer]. She states she is having moderately severe pain to the right posterior occipital region she has not had any neurologic changes she has no neck pain. She is quite tender with palpation in her right occipital parietal region. Will go ahead and obtain CT of the patient's head. Patient was offered pain medication she states she really doesn't want anything. She states she will take Advil at home. 05/12/17 03:22 Patient doing well neurologically intact vitals are stable. Head CT no bleeds no fractures. Patient has no neck pain. Will discharge - Departure Time of Disposition: 03:22 Departure Disposition: Home Clinical Impression: Accidental fall Qualifiers: Encounter type: initial encounter Qualified Code(s): W19.XXXA - Unspecified fall, initial encounter Head contusion Qualifiers: Encounter type: initial encounter Contusion of head detail: unspecified part of head Qualified Code(s): S00.93XA - Contusion of unspecified part of head, initial encounter Condition: Fair Critical Care Time: No Referrals: AALIYAH WHITTAKER [Primary Care Provider] - Instructions: Prevent Falls Additional Instructions: Return home. Cold packs to area 24-48 hours. Advil every 6 hours as needed for pain. Follow-up with your family doctor if symptoms are worse, no better in 48 hours, or persist longer than one week. Return for acute distress or for severe symptoms.
[2017-05-12 03:05] VITALS: BP 116/76; PULSE 68
--- NOTE | 2017-05-12 08:47 | XRAY ---
Indication: Pain following fall. Multiple contiguous axial images obtained through the head without contrast. Comparison: February 26, 2017. Several images are slightly degraded by motion artifact. Stable age-appropriate global atrophy and minimal periventricular degenerative micro-ischemia bilaterally. No acute intracranial hemorrhage, abnormal extra-axial fluid collection, or mass effect. Fourth ventricle is midline without hydrocephalus. Bony calvarium intact. Visualized paranasal sinuses and mastoid air cells clear. Impression: Motion artifact. Otherwise grossly stable nonacute senile brain. Comment: Preliminary interpretation was made by [facility]. No discrepancy. CT DI 50.38
== END 2017-05-12 03:35 | disposition home or self-care (01) ==
LOC: ED 01:42
DX: S00.93XA Contusion of unspecified part of head, initial encounter (principal); W07.XXXA Fall from chair, initial encounter
CPT/HCPCS: 70450; 99283

== ENCOUNTER 2021-04-22 01:22 | Emergency (ER) | payer OTHER ==
--- NOTE | 2021-04-22 01:55 | ERPHSYRPT ---
- History of Present Illness Time Seen by Provider: 04/22/21 01:43 Historian: patient Exam Limitations: no limitations Patient Subjective Stated Complaint: pt states "I puked 5 times tonight and think it was from the pizza." Triage Nursing Assessment: pt ambulated into the er; pt is axo x4; c/o vomiting; pt denies pain; pt denies diarrhea; pt states that she has had 5 episodes of emesis tonight; pt states that she vomited undigested food; pt has hx GERD; pt states indegestion; abd is obese, round, soft, non tender; pt has hyperactive bowel sounds in all quads; pt states that she had a BM prior to arrival; mucus membrane pink and moist; hypertensive Physician History: 65 years old female with history of tobacco abuse, COPD, GERD presented in the ER with chief complaint of multiple episodes of vomiting tonight with substernal/epigastric burning, mild to moderate earlier and currently no pain. Patient reports "I think it is my pizza but my daughter wants to make sure is not a heart attack". Patient report nonprojectile, nonbilious vomiting and threw up undigested food. Had some abdominal cramping in the upper abdomen earlier but currently no abdominal or chest pain or heartburns. No difficulty breathing. No history of CAD. Timing/Duration: hour(s) (4), intermittent, gradual onset, improved Activities at Onset: rest Quality: burning Location: epigastric Chest Pain Radiation: no radiation Severity of Pain-Max: moderate Severity of Pain-Current: none Associated Symptoms: nausea, vomiting, heartburn Prior Chest Pain/Cardiac Workup: no prior chest pain Nitro Today/Relief: no nitro taken today Aspirin Treatment Today: no aspirin today Allergies/Adverse Reactions: Penicillins Allergy (Severe, Verified 04/22/21 01:30) Hives affected vision, pt stated she couldnt see Sulfa (Sulfonamide Antibiotics) [Sulfa(Sulfonamide Antibiotics)] Allergy (Intermediate, Verified 04/22/21 01:30) Hives Home Medications: Albuterol 2.5 mg/3 ml Neb [Proventil 2.5 mg/3 ml Neb] 2.5 mg IH TID PRN PRN 02/25/17 [History] Albuterol 8 gm Mdi Hfa [Ventolin Hfa MDI] 2 puff IH Q4HPRN PRN 02/25/17 [History] Nystatin 60 ml [Nystatin SUSPENSION 60 ML] 5 ml PO QID 02/25/17 [History] Hx Tetanus, Diphtheria Vaccination/Date Given: No Hx Influenza Vaccination/Date Given: No Hx Pneumococcal Vaccination/Date Given: No Travel Risk - International Travel Have you traveled outside of the country in past 3 weeks: No - Coronavirus Screening Are you exhibiting any of the following symptoms?: Yes Symptoms: Vomiting/Diarrhea Close contact with a COVID-19 positive Pt in past 14-21 Days: No - Vaccine Status Have you recieved a Covid-19 vaccination: No - Review of Systems Constitutional: No Symptoms Eyes: No Symptoms Ears, Nose, & Throat: No Symptoms Respiratory: No Symptoms Cardiac: No Symptoms Abdominal/Gastrointestinal: Nausea, Vomiting Genitourinary Symptoms: No Symptoms Musculoskeletal: No Symptoms Skin: No Symptoms Neurological: No Symptoms Psychological: No Symptoms Endocrine: No Symptoms Hematologic/Lymphatic: No Symptoms Immunological/Allergic: No Symptoms - Past Medical History Pertinent Past Medical History: Yes Neurological History: No Pertinent History, TIA ENT History: No Pertinent History Cardiac History: No Pertinent History Respiratory History: COPD Endocrine Medical History: No Pertinent History Musculoskeletal History: Arthritis GI Medical History: No Pertinent History, GERD, Ulcer History: Renal Disease Psycho-Social History: Depression Female Reproductive Disorders: No Pertinent History - Past Surgical History Past Surgical History: Yes Neuro Surgical History: No Pertinent History Cardiac: No Pertinent History Respiratory: No Pertinent History Gastrointestinal: No Pertinent History Genitourinary: No Pertinent History Musculoskeletal: No Pertinent History Female Surgical History: Tubal Ligation, Other Other Surgical History: D&C, TONSILS, - Social History Smoking Status: Current every day smoker How long have you smoked: 48years Exposure to second hand smoke: Yes Drug Use: none Patient Lives Alone: No - Female History Hx Now: No - Nursing Vital Signs Nursing Vital Signs: Initial Vital Signs Temperature 98.1 F 04/22/21 01:31 Pulse Rate 81 04/22/21 01:31 Respiratory Rate 18 04/22/21 01:31 Blood Pressure 175/86 04/22/21 01:31 O2 Sat by Pulse Oximetry 95 04/22/21 01:31 Pain Scale Pain Intensity 0 - Physical Exam General Appearance: no apparent distress, alert Eye Exam: PERRL/EOMI Ears, Nose, Throat Exam: normal ENT inspection, pharynx normal Neck Exam: normal inspection, non-tender, supple, full range of motion Respiratory Exam: normal breath sounds, lungs clear Cardiovascular Exam: regular rate/rhythm, normal heart sounds Gastrointestinal/Abdomen Exam: soft, normal bowel sounds, No tenderness Back Exam: normal inspection, normal range of motion Extremity Exam: normal inspection, normal range of motion Neurologic Exam: alert, oriented x 3, cooperative Skin Exam: normal color SpO2 Interpretation: normal SpO2: 95 O2 Delivery: Room Air - Course EKG Interpreted by Me: RATE (69), Sinus Rhythm, NORMAL AXIS, NORMAL INTERVALS, NORMAL QRS Ordered Tests: Medication Summary Discontinued Medications Generic Name Dose Route Start Last Admin Trade Name Freq PRN Reason Stop Dose Admin Ondansetron HCl Confirm 04/22/21 02:49 Ondansetron Hcl 4 Mg/2 Ml Vial Administered 04/22/21 02:50 Dose 4 mg .ROUTE .STK-MED ONE Ondansetron HCl 4 mg 04/22/21 02:51 04/22/21 02:51 Ondansetron Hcl 4 Mg/2 Ml Vial IV 04/22/21 02:52 4 mg STAT ONE Administration Pantoprazole Sodium Confirm 04/22/21 02:49 Pantoprazole 40 Mg Vial Administered 04/22/21 02:50 Dose 40 mg IV .STK-MED ONE Pantoprazole Sodium 40 mg 04/22/21 02:50 04/22/21 02:51 Pantoprazole 40 Mg Vial IV 04/22/21 02:51 40 mg STAT ONE Administration Lab/Rad Data: Laboratory Result Diagrams 04/22/21 01:52 04/22/21 01:52 Laboratory Results 04/22/21 04/22/21 04/22/21 Range/Units 04:41 01:52 01:52 WBC (4.0-10.5) K/mm3 RBC (4.1-5.4) M/mm3 Hgb (12.0-16.0) gm/dl Hct (35-47) % MCV (78-100) fl MCH (26-32) pg MCHC (32-36) g/dl RDW (11.5-14.0) % Plt Count (150-450) K/mm3 MPV (7.5-11.0) fl Gran % (36.0-66.0) % Eos # (Auto) (0-0.5) Absolute Lymphs (auto) (1.0-4.6) Absolute Monos (auto) (0.0-1.3) Lymphocytes % (24.0-44.0) % Monocytes % (0.0-12.0) % Eosinophils % (0.00-5.0) % Basophils % (0.0-0.4) % Absolute Granulocytes (1.4-6.9) Basophils # (0-0.4) Sodium 142 (137-145) mmol/L Potassium 4.4 (3.5-5.1) mmol/L Chloride 102 (98-107) mmol/L Carbon Dioxide 29 (22-30) mmol/L Anion Gap 15.2 H (5-15) MEQ/L BUN 27 H (7-17) mg/dL Creatinine 1.44 H (0.52-1.04) mg/dL Estimated GFR 39.0 ML/MIN Glucose 108 H (74-106) mg/dL Calcium 9.7 (8.4-10.2) mg/dL Total Bilirubin 0.60 (0.2-1.3) mg/dL AST 28 (14-36) U/L ALT 17 (0-35) U/L Alkaline Phosphatase 83 (38-126) U/L Troponin I < 0.012 < 0.012 (0.000-0.034) ng/mL NT-Pro-B Natriuret Pep 399 (0-900) pg/mL Serum Total Protein 8.0 (6.3-8.2) g/dL Albumin 4.5 (3.5-5.0) g/dL 04/22/21 Range/Units 01:52 WBC 8.0 (4.0-10.5) K/mm3 RBC 4.52 (4.1-5.4) M/mm3 Hgb 14.0 (12.0-16.0) gm/dl Hct 44.4 (35-47) % MCV 98.2 (78-100) fl MCH 31.0 (26-32) pg MCHC 31.5 L (32-36) g/dl RDW 14.8 H (11.5-14.0) % Plt Count 279 (150-450) K/mm3 MPV 10.5 (7.5-11.0) fl Gran % 63.2 (36.0-66.0) % Eos # (Auto) 0.31 (0-0.5) Absolute Lymphs (auto) 2.13 (1.0-4.6) Absolute Monos (auto) 0.46 (0.0-1.3) Lymphocytes % 26.7 (24.0-44.0) % Monocytes % 5.8 (0.0-12.0) % Eosinophils % 3.9 (0.00-5.0) % Basophils % 0.4 (0.0-0.4) % Absolute Granulocytes 5.06 (1.4-6.9) Basophils # 0.03 (0-0.4) Sodium (137-145) mmol/L Potassium (3.5-5.1) mmol/L Chloride (98-107) mmol/L Carbon Dioxide (22-30) mmol/L Anion Gap (5-15) MEQ/L BUN (7-17) mg/dL Creatinine (0.52-1.04) mg/dL Estimated GFR ML/MIN Glucose (74-106) mg/dL Calcium (8.4-10.2) mg/dL Total Bilirubin (0.2-1.3) mg/dL AST (14-36) U/L ALT (0-35) U/L Alkaline Phosphatase (38-126) U/L Troponin I (0.000-0.034) ng/mL NT-Pro-B Natriuret Pep (0-900) pg/mL Serum Total Protein (6.3-8.2) g/dL Albumin (3.5-5.0) g/dL - Progress Progress: improved Air Movement: fair Progress Note: She is given Protonix and Zofran, on reevaluation feeling better. Negative chest pain work-up including EKG and 2 sets of troponin. In nature does not seem cardiac in more of a acid reflux, started on Protonix and recommended outpatient follow-upWith primary care and cardiology. Blood Culture(s) Obtained: No Antibiotics given: No Counseled pt/family regarding: lab results, diagnosis, need for follow-up, rad results - Departure Departure Disposition: Home Clinical Impression: Atypical chest pain Nausea & vomiting Qualifiers: Vomiting type: unspecified Vomiting Intractability: non-intractable Qualified Code(s): R11.2 - Nausea with vomiting, unspecified Condition: Stable Critical Care Time: No Referrals: AALIYAH TILLMAN [Primary Care Provider] - (Call tomorrow for reevaluation) SHER VALERIO [CONSULTING PHYSICIAN] - (Call tomorrow for appointment) Instructions: Chest Pain That Is Not Caused by the Heart (DC), Nausea and Vomiting, Adult (DC) Additional Instructions: Do not smoke. Take Tylenol as needed for pain. Take Zofran as needed. Continue with Protonix. Follow-up with your primary care for reevaluation and may need follow-up outpatient with cardiology for further evaluation. Return to ER for any worsening. Prescriptions: Ondansetron ODT 4 MG [Zofran Odt 4 mg] 4 mg PO Q6H PRN PRN #6 tablet PRN Reason: Vomiting PANTOPRAZOLE 40 mg Tablet [Protonix 40MG Tablet] 40 mg PO QAM #30 tab
[2021-04-22 01:56] LABS: Absolute Neutrophil Ct (ANC) 5.06 (1.4-6.9); BASOPHIL % 0.4 % (0.0-0.4); Basophil (Absolute #) 0.03 (0-0.4); Eosinophil % 3.9 % (0.00-5.0); Eosinophil (Absolute #) 0.31 (0-0.5); Hematocrit 44.4 % (35-47); Lymphocyte (Absolute #) 2.13 (1.0-4.6); Lymphocytes % 26.7 % (24.0-44.0); Mean Cell Volume 98.2 fl (78-100); Mean Corpuscular Hgb Concent. 31.5 g/dl (32-36); Mean Platelet Volume 10.5 fl (7.5-11.0); Monocyte (Absolute #) 0.46 (0.0-1.3); Monocytes % 5.8 % (0.0-12.0); Neutrophil % 63.2 % (36.0-66.0); Platelet Count 279 K/mm3 (150-450); Red Blood Count 4.52 M/mm3 (4.1-5.4); Red Cell Distribution Width 14.8 % (11.5-14.0)
[2021-04-22 02:14] LABS: ALBUMIN 4.5 g/dL (3.5-5.0); ANION GAP 15.2 MEQ/L (5-15); BILIRUBIN,TOTAL 0.6 mg/dL (0.2-1.3); Calcium 9.7 mg/dL (8.4-10.2); Creatinine 1 1.44 mg/dL (0.52-1.04); Potassium 4.4 mmol/L (3.5-5.1)
[2021-04-22] MEDS ORDERED: PROTONIX 40 MG IV IV ONE ×2 (02:49→02:50)
[2021-04-22] MEDS ORDERED: Zofran 4 MG/2 ML VIAL ONE (02:49)
[2021-04-22] MEDS ORDERED: Zofran 4 MG/2 ML VIAL IV ONE (02:51)
[2021-04-22 05:11] VITALS: BP 136/86; PULSE 73
--- NOTE | 2021-04-22 07:20 | XRAY ---
Indication: Vomiting. Heartburn. Comparison: January 06, 2019. Portable apical lordotic chest remains clear. Heart and mediastinal structures within normal limits. Bony thorax intact with mild osteopenia and degenerative changes. Impression: Continued nonacute chest.
[2021-04-24 23:48] VITALS: O2SAT 95
== END 2021-04-22 05:38 | disposition home or self-care (01) ==
LOC: ED 01:22
DX: R11.2 Nausea with vomiting, unspecified (principal)
CPT/HCPCS: 36000; 36415; 71045; 80053; 83880; 84484; 85025; 93005; 93041; 96374; 96375; 99284; J2405

== ENCOUNTER 2022-04-27 19:08 | Inpatient (IN) | payer OTHER ==
[2022-04-27] MEDS: Sodium Chloride 0.9% 1000 ML 1,000 ML IV SCH (19:31)
--- NOTE | 2022-04-27 19:39 | ERPHSYRPT ---
- History of Present Illness Time Seen by Provider: 04/27/22 19:40 Source: patient, EMS Exam Limitations: clinical condition Patient Subjective Stated Complaint: ems states "she has been sick for 3 days, new productive cough, fever." Triage Nursing Assessment: pt presents to ED via SCAT 1, pt alert and oriented x3, pt c/o new productive cough and fever, pt feels more short of breath lately, pt has hx of copd, pt wears a NC at night but pt unknown of how many liters she wears, pt unknown of color of sputum because per pt "I just swallow what I cough up " Physician History: Patient is a 66-year-old white female with a long history of COPD and end-stage renal disease not yet on dialysis who presents with a 3-day history of productive cough headache and fever. She was noted by EMS to have rales and decreased breath sounds they administered DuoNeb and 125 of Solu-Medrol in route to the ER. On arrival her O2 sat was 91% on 2 L. She was noted to have O2 sats in the upper 80s at home on room air. Timing/Duration: day(s) (3) Activities at Onset: activity Severity of Dyspnea-Max: severe Severity of Dyspnea-Current: severe Possible Cause: frequent episodes Modifying Factors: Improves With: albuterol nebulizer, oxygen Associated Symptoms: cough, wheezing, weakness, chills, productive cough Allergies/Adverse Reactions: Penicillins Allergy (Severe, Verified 04/27/22 19:13) Hives affected vision, pt stated she couldnt see Sulfa (Sulfonamide Antibiotics) [Sulfa(Sulfonamide Antibiotics)] Allergy (Intermediate, Verified 04/27/22 19:13) Hives Home Medications: Albuterol 2.5 mg/3 ml Neb [Proventil 2.5 mg/3 ml Neb] 2.5 mg IH TID PRN PRN 02/25/17 [History] Albuterol 8 gm Mdi Hfa [Ventolin Hfa MDI] 2 puff IH Q4HPRN PRN 02/25/17 [History] Nystatin 60 ml [Nystatin SUSPENSION 60 ML] 5 ml PO QID 02/25/17 [History] Hx Tetanus, Diphtheria Vaccination/Date Given: No Hx Influenza Vaccination/Date Given: No Hx Pneumococcal Vaccination/Date Given: No Immunizations Up to Date: No Travel Risk - International Travel Have you traveled outside of the country in past 3 weeks: No - Coronavirus Screening Are you exhibiting any of the following symptoms?: Yes Symptoms: Fever, Cough: New Onset, Shortness of Breath Close contact with a COVID-19 positive Pt in past 14-21 Days: No - Vaccine Status Have you recieved a Covid-19 vaccination: No - Review of Systems Constitutional: Fever, No Chills Eyes: No Symptoms Ears, Nose, & Throat: No Symptoms Respiratory: Cough, Dyspnea, Dyspnea on Exertion (FOSTER), Wheezing Cardiac: No Chest Pain, No Edema, No Syncope Abdominal/Gastrointestinal: No Abdominal Pain, No Nausea, No Vomiting, No Diarrhea Genitourinary Symptoms: No Dysuria Musculoskeletal: No Back Pain, No Neck Pain Skin: No Rash Neurological: No Dizziness, No Focal Weakness, No Sensory Changes Psychological: No Symptoms Endocrine: No Symptoms All Other Systems: Reviewed and Negative - Past Medical History Pertinent Past Medical History: Yes Neurological History: No Pertinent History, TIA ENT History: No Pertinent History Cardiac History: No Pertinent History Respiratory History: COPD Endocrine Medical History: No Pertinent History Musculoskeletal History: Arthritis GI Medical History: No Pertinent History, GERD, Ulcer History: Renal Disease Psycho-Social History: Depression Female Reproductive Disorders: No Pertinent History - Past Surgical History Past Surgical History: Yes Neuro Surgical History: No Pertinent History Cardiac: No Pertinent History Respiratory: No Pertinent History Gastrointestinal: No Pertinent History Genitourinary: No Pertinent History Musculoskeletal: No Pertinent History Female Surgical History: Tubal Ligation, Other Other Surgical History: D&C, TONSILS, - Social History Smoking Status: Current every day smoker How long have you smoked: 48years Exposure to second hand smoke: Yes Drug Use: none Patient Lives Alone: No - Nursing Vital Signs Nursing Vital Signs: Initial Vital Signs Temperature 101.5 F 04/27/22 19:14 Pulse Rate 95 H 04/27/22 19:14 Respiratory Rate 24 04/27/22 19:14 Blood Pressure 105/84 04/27/22 19:14 O2 Sat by Pulse Oximetry 96 04/27/22 19:14 Pain Scale Pain Intensity 0 - Physical Exam General Appearance: moderate distress, alert Eye Exam: PERRL/EOMI Neck Exam: normal inspection, supple Respiratory Exam: respiratory distress, diminished breath sounds, crackles/rales, rhonchi, wheezing Cardiovascular/Chest Exam: normal heart sounds, regular rate/rhythm Abdominal/Gastrointestinal Exam: soft, No tenderness, No distention, No mass Extremity Exam: non-tender, normal range of motion, normal inspection, no calf tenderness, no pedal edema Neurologic Exam: alert, oriented x 3, cooperative, 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, sensation nml, No motor deficits Skin Exam: normal color, warm, No dry SpO2 Interpretation: normal SpO2: 95 O2 Delivery: Room Air - Course Nursing assessment & vital signs reviewed: Yes EKG Interpreted by Me: RATE (97), Sinus Rhythm, Left Milton Deviation, NORMAL INTERVALS, NORMAL QRS, Non-specific ST Changes, Other (Bilateral atrial enlargement) - Radiology Exams Chest X-ray Interpretation: Interpreted by me, Other (Chronic changes and questionable opacities in the left lung base.) Ordered Tests: Active Orders 24 hr Category Date Time Status Installation Tech STAT Care 04/27/22 19:15 Active EKG-ER Only STAT Care 04/27/22 19:13 Active IV Insertion STAT Care 04/27/22 19:13 Active IV Insertion-2nd Peripheral STAT Care 04/27/22 19:25 Active Oxygen-ED Only Nasal Cannula 4 lpm Care 04/27/22 19:26 Active CHEST 1 VIEW (PORTABLE) Stat Exams 04/27/22 19:14 Taken BLOOD CULTURE Stat Lab 04/27/22 20:08 Received CBC W DIFF Stat Lab 04/27/22 20:08 Completed CMP Stat Lab 04/27/22 20:25 Completed D-DIMER QUANTITATIVE Stat Lab 04/27/22 20:08 Completed Lactic Acid Stat Lab 04/27/22 19:30 Completed Manual Differential NC Stat Lab 04/27/22 20:08 Completed NT PRO BNP Routine Lab 04/27/22 20:08 Completed PROTIME WITH INR Stat Lab 04/27/22 20:08 Completed TROPONIN Q4H Lab 04/27/22 20:08 Completed TROPONIN Q4H Lab 04/27/22 23:15 Ordered TROPONIN Q4H Lab 04/28/22 03:15 Ordered UA W/RFX CULTURE Stat Lab 04/27/22 Ordered Medication Summary Generic Name Dose Route Start Last Admin Trade Name Freq PRN Reason Stop Dose Admin Sodium Chloride 1,000 mls @ 100 mls/hr 04/27/22 19:15 04/27/22 19:31 Sodium Chloride 0.9% 1000 Ml IV 05/27/22 19:14 100 mls/hr .Q10H PAMELA Administration Discontinued Medications Generic Name Dose Route Start Last Admin Trade Name Adonay PRN Reason Stop Dose Admin Acetaminophen 1,000 mg 04/27/22 20:24 04/27/22 20:27 Acetaminophen 500 Mg Tablet PO 04/27/22 20:25 1,000 mg STAT STA Administration Acetaminophen Confirm 04/27/22 20:26 Acetaminophen 500 Mg Tablet Administered 04/27/22 20:27 Dose 1,000 mg .ROUTE .MMIT-MED ONE Lab/Rad Data: Laboratory Result Diagrams 04/27/22 20:08 04/27/22 20:25 Laboratory Results 04/27/22 04/27/22 04/27/22 Range/Units 20:25 20:08 20:08 WBC (4.0-10.5) x10^3/uL RBC (4.1-5.4) x10^6/uL Hgb (12.0-16.0) g/dL Hct (35-47) % MCV (78-100) fL MCH (26-32) pg MCHC (32-36) g/dL RDW (11.5-14.0) % Plt Count (150-450) x10^3/uL MPV (7.5-11.0) fL PT 10.3 (9.4-12.5) SECONDS INR 0.97 (0.8-3.0) D-Dimer 2.28 H* (0.0-0.50) mg/L Sodium 135 L (137-145) mmol/L Potassium 5.1 (3.5-5.1) mmol/L Chloride 106 (98-107) mmol/L Carbon Dioxide 20 L (22-30) mmol/L Anion Gap 14.4 (5-15) MEQ/L BUN 57 H (7-17) mg/dL Creatinine 2.69 H (0.52-1.04) mg/dL Estimated GFR 18.9 ML/MIN Glucose 103 (74-106) mg/dL Lactic Acid (0.4-2.0) Calcium 8.2 L (8.4-10.2) mg/dL Total Bilirubin 0.70 (0.2-1.3) mg/dL AST 74 H (14-36) U/L ALT 46 H (0-35) U/L Alkaline Phosphatase 78 (38-126) U/L Troponin I 0.040 H* (0.000-0.034) ng/mL NT-Pro-B Natriuret Pep 850 (0-900) pg/mL Serum Total Protein 8.0 (6.3-8.2) g/dL Albumin 4.1 (3.5-5.0) g/dL Influenza Type A Ag (NEGATIVE) Influenza Type B Ag (NEGATIVE) RSV (PCR) (Negative) SARS-CoV-2 (PCR) (NEGATIVE) 04/27/22 04/27/22 04/27/22 Range/Units 20:08 20:06 19:30 WBC 5.1 (4.0-10.5) x10^3/uL RBC 4.78 (4.1-5.4) x10^6/uL Hgb 14.1 (12.0-16.0) g/dL Hct 46.2 (35-47) % MCV 96.7 (78-100) fL MCH 29.5 (26-32) pg MCHC 30.5 L (32-36) g/dL RDW 15.5 H (11.5-14.0) % Plt Count 173 (150-450) x10^3/uL MPV 11.1 H (7.5-11.0) fL PT (9.4-12.5) SECONDS INR (0.8-3.0) D-Dimer (0.0-0.50) mg/L Sodium (137-145) mmol/L Potassium (3.5-5.1) mmol/L Chloride (98-107) mmol/L Carbon Dioxide (22-30) mmol/L Anion Gap (5-15) MEQ/L BUN (7-17) mg/dL Creatinine (0.52-1.04) mg/dL Estimated GFR ML/MIN Glucose (74-106) mg/dL Lactic Acid 0.9 (0.4-2.0) Calcium (8.4-10.2) mg/dL Total Bilirubin (0.2-1.3) mg/dL AST (14-36) U/L ALT (0-35) U/L Alkaline Phosphatase (38-126) U/L Troponin I (0.000-0.034) ng/mL NT-Pro-B Natriuret Pep (0-900) pg/mL Serum Total Protein (6.3-8.2) g/dL Albumin (3.5-5.0) g/dL Influenza Type A Ag NEGATIVE (NEGATIVE) Influenza Type B Ag NEGATIVE (NEGATIVE) RSV (PCR) NEGATIVE (Negative) SARS-CoV-2 (PCR) POSITIVE A (NEGATIVE) - Progress Progress: unchanged Air Movement: fair Blood Culture(s) Obtained: Yes Antibiotics given: No - Departure Departure Disposition: Home Clinical Impression: COVID Condition: Serious Critical Care Time: No Referrals: AALIYHA TILLMAN [Primary Care Provider] - Follow up/PCP as directed
[2022-04-27 20:14] LABS: Hematocrit 46.2 % (35-47); Hemoglobin 14.1 g/dL (12.0-16.0); Mean Cell Volume 96.7 fL (78-100); Mean Corpuscular Hemoglobin 29.5 pg (26-32); Mean Corpuscular Hgb Concent. 30.5 g/dL (32-36); Mean Platelet Volume 11.1 fL (7.5-11.0); Platelet Count 173 x10^3/uL (150-450); Red Blood Count 4.78 x10^6/uL (4.1-5.4); Red Cell Distribution Width 15.5 % (11.5-14.0); White Blood Count 5.1 x10^3/uL (4.0-10.5)
[2022-04-27] MEDS ORDERED: TYLENOL EXTRA STRENGTH 500 MG PO STA (20:24)
[2022-04-27] MEDS ORDERED: TYLENOL EXTRA STRENGTH 500 MG ONE (20:26)
[2022-04-27 20:49] LABS: INR 0.97 (0.8-3.0); PROTIME 10.3 SECONDS (9.4-12.5)
[2022-04-27 20:50] LABS: ALBUMIN 4.1 g/dL (3.5-5.0); ANION GAP 14.4 MEQ/L (5-15); BILIRUBIN,TOTAL 0.7 mg/dL (0.2-1.3); Calcium 8.2 mg/dL (8.4-10.2); Creatinine 1 2.69 mg/dL (0.52-1.04); EST GLOMERULAR FILTRATION RATE 18.9 ML/MIN; Potassium 5.1 mmol/L (3.5-5.1)
[2022-04-27 20:51] LABS: INFLUENZA A NEGATIVE (NEGATIVE); INFLUENZA B NEGATIVE (NEGATIVE); RESPIRATORY SYNCTIAL VIRUS NEGATIVE (Negative)
[2022-04-27 20:53] LABS: D-DIMER QUANTITATIVE 2.28 mg/L (0.0-0.50)
[2022-04-27 20:54] LABS: SARS-CoV-2 Xpert Express POSITIVE (NEGATIVE)
[2022-04-27 21:08] LABS: TROPONIN 0.04 ng/mL (0.000-0.034)
[2022-04-27 21:52] LABS: BAND 4 % (0.0-2.0); Lymphocytes 28 % (24-44); Monocyte 4 % (0.0-12.0); Platelet Estimate NORMAL (NORMAL); Total Cells Counted 100
[2022-04-28] MEDS ORDERED: Ativan 1 MG PO PRN (00:01)
[2022-04-28] MEDS ORDERED: HYDROCODONE-CHLORPHEN ER SUSP PO PRN (00:01)
[2022-04-28] MEDS ORDERED: REMDESIVIR 200 MG in Sodium Chloride 0.9% 250 ML 250 ML IV ONE (00:01)
[2022-04-28] MEDS ORDERED: Zofran 4 MG/2 ML VIAL IV PRN (00:01)
[2022-04-28] MEDS ORDERED: Sodium Chloride 0.9% 250 ML 250 ML IV ONE (00:12)
[2022-04-28] MEDS ORDERED: REMDESIVIR IV ONE (00:12)
[2022-04-28 03:55] LABS: ANION GAP 14.9 MEQ/L (5-15); Calcium 7.6 mg/dL (8.4-10.2); Creatinine 1 2.37 mg/dL (0.52-1.04); EST GLOMERULAR FILTRATION RATE 21.8 ML/MIN; PREALBUMIN 7.32 mg/dL (17.6-36.0); Potassium 5.1 mmol/L (3.5-5.1)
[2022-04-28 04:16] LABS: Hematocrit 40.2 % (35-47); Hemoglobin 12.5 g/dL (12.0-16.0); Mean Cell Volume 96.6 fL (78-100); Mean Corpuscular Hgb Concent. 31.1 g/dL (32-36); Mean Platelet Volume 11.1 fL (7.5-11.0); Platelet Count 157 x10^3/uL (150-450); Red Blood Count 4.16 x10^6/uL (4.1-5.4); Red Cell Distribution Width 15.8 % (11.5-14.0); White Blood Count 3.1 x10^3/uL (4.0-10.5)
[2022-04-28] MEDS: Ativan 2 MG/1 ML VIAL IV PRN ×4 (04:51→17:23)
[2022-04-28] MEDS ORDERED: VENTOLIN COMMON CANISTER IH PRN (05:00)
[2022-04-28] MEDS: ENOXAPARIN SODIUM SQ SCH (07:49)
[2022-04-28] MEDS: DECADRON 10MG INJ. IV SCH (07:49)
[2022-04-28] MEDS: Sodium Chloride 0.9% 1000 ML 1,000 ML IV SCH ×2 (07:50→17:53)
--- NOTE | 2022-04-28 07:52 | XRAY ---
Indication: Fever. Short of breath. Comparison: April 22, 2021 Portable chest demonstrates new subtle patchy bilateral mid to lower lung airspace opacities and tiny right effusion. Heart not enlarged. Bony thorax intact again with mild osteopenia and degenerative changes. Comment: Lung findings not reported by the interpreting ER physician. Telephone report was given to Dr. Frias at 0746 hours on April 28, 2022.
[2022-04-28 08:13] LABS: Appearance CLEAR (CLEAR); Bilirubin NEGATIVE (NEGATIVE); Glucose NEGATIVE (NEGATIVE); Ketones NEGATIVE (NEGATIVE); Ph 5.5 (5-6); RBC MODERATE Ery/ul (0-5)
[2022-04-28 08:14] LABS: Dipstick done @ ? MAIN LAB; Nitrite NEGATIVE (NEGATIVE); Protein,Urine Dip 100 (Negative); Urobilinogen 0.2 mg/dL (0-1)
[2022-04-28 08:18] LABS: Bacteria FEW /HPF (NEGATIVE); Mucus SLIGHT /HPF (NEGATIVE); RBC 0-2 /HPF (0-2); WBC 51-100 /HPF (0-5)
[2022-04-28 08:22] LABS: Urine Cultured Indicated? YES
[2022-04-28] MEDS: PROTONIX 40 MG IV IV SCH (09:05)
[2022-04-28] MEDS ORDERED: Zithromax 500 MG/ 250 ML NaCl Premix 500 MG/250 ML IVPB IV SCH ×2 (10:00→22:00)
[2022-04-28] MEDS ORDERED: ROCEPHIN 1 Gm-D5w 50 ml Bag** 1 G/50 ML IVPB IV SCH ×2 (10:00→22:00)
[2022-04-28] MEDS ORDERED: ENOXAPARIN SODIUM SQ SCH (10:00)
[2022-04-28] MEDS ORDERED: MORPHINE SULFATE 4 MG INJ IV PRN (12:13)
--- NOTE | 2022-04-28 13:14 | PCM.HP ---
History of Present Illness - Chief Complaint Chief Complaint: shortness of breath for 2-3 days History of Present Illness: is a 66 year old female.with a long history of COPD and end-stage renal disease not yet on dialysis who presents with a 3-day history of productive cough headache and fever. She was noted by EMS to have rales and decreased breath sounds they administered DuoNeb and 125 of Solu-Medrol in route to the ER. On arrival her O2 sat was 91% on 2 L. She was noted to have O2 sats in the upper 80s at home on room air. Timing/Duration: day(s) (3) Activities at Onset: activity Severity of Dyspnea-Max: severe Severity of Dyspnea-Current: severe Possible Cause: frequent episodes Modifying Factors: Improves With: albuterol nebulizer, oxygen Associated Symptoms: cough, wheezing, weakness, chills, productive cough - Review of Systems Constitutional: Fever, Fatigue, No Chills Eyes: No Symptoms Ears, Nose, & Throat: No Symptoms Respiratory: Cough, Short Of Breath, Wheezing Cardiac: No Chest Pain, No Edema, No Syncope Abdominal/Gastrointestinal: No Abdominal Pain, No Nausea, No Vomiting, No Diarrhea Genitourinary Symptoms: No Dysuria Musculoskeletal: No Back Pain, No Neck Pain Skin: No Rash Neurological: No Dizziness, No Focal Weakness, No Sensory Changes Psychological: No Symptoms Endocrine: No Symptoms Hematologic/Lymphatic: No Symptoms Immunological/Allergic: No Symptoms Medications & Allergies Home Medications: Home Medication List No Reportable Medications [No Reported Medications] 04/28/22 [History Confirmed 04/28/22] Allergies/Adverse Reactions: Allergies Allergy/AdvReac Type Severity Reaction Status Date / Time Penicillins Allergy Severe Hives Verified 04/27/22 19:13 Sulfa (Sulfonamide Allergy Intermediate Hives Verified 04/27/22 19:13 Antibiotics) [Sulfa(Sulfonamide Antibiotics)] - Past Medical History Past Medical History: Yes Neurological History: No Pertinent History, TIA ENT History: No Pertinent History Cardiac History: No Pertinent History Respiratory History: COPD Endocrine Medical History: No Pertinent History Musculoskelatal History: Arthritis GI Medical History: No Pertinent History, GERD, Ulcer History: Renal Disease Pyscho-Social History: Depression Reproductive Disorders: No Pertinent History - Female History Are you now?: No - Past Surgical History Past Surgical History: Yes Neuro Surgical History: No Pertinent History Cardiac History: No Pertinent History Respiratory Surgery: No Pertinent History GI Surgical History: No Pertinent History Genitourinary Surgical Hx: No Pertinent History Musculskeletal Surgical Hx: No Pertinent History Female Surgical History: Tubal Ligation, Other Other Surgical History: D&C, TONSILS, - Social History Smoking Status: Current every day smoker How long have you smoked: 48years Exposure to second hand smoke: Yes Alcohol: None Drug Use: none - Physical Exam Vital Signs: Vital Signs - 24 hr Temp Pulse Resp BP Pulse Ox 04/28/22 12:00 16 04/28/22 11:44 97.7 F 51 L 16 133/69 98 04/28/22 09:57 49 L 14 99 04/28/22 08:00 96.9 F 60 18 120/71 98 04/28/22 07:59 19 04/28/22 07:47 98 04/28/22 06:00 50 L 26 H 96 04/28/22 05:10 67 19 95 04/28/22 04:51 66 28 H 04/28/22 04:00 97.9 F 87 19 118/71 90 L 04/28/22 01:53 56 L 26 H 92 L 04/28/22 01:44 20 04/28/22 00:32 69 24 90 L 04/28/22 00:06 91 L 04/28/22 00:00 99.5 F 65 18 103/55 91 L 04/27/22 21:52 75 23 96 04/27/22 21:31 95 04/27/22 21:00 74 20 116/61 96 04/27/22 20:10 88 24 101/67 95 04/27/22 19:21 22 95 04/27/22 19:14 101.5 F 95 H 24 105/84 96 Oxygen-Last 24 hours Oxygen Flowrate (L/min)-RT 4 General Appearance: moderate distress, alert Neurologic Exam: alert, oriented x 3, cooperative, normal mood/affect, nml cerebellar function, nml station & gait, sensation nml, No motor deficits Eye Exam: PERRL/EOMI, eyes nml inspection Ears, Nose, Throat Exam: normal ENT inspection, TMs normal, pharynx normal, moist mucous membranes Neck Exam: normal inspection, non-tender, supple, full range of motion Respiratory Exam: respiratory distress, diminished breath sounds, accessory muscle use, prolonged expirations, crackles/rales, rhonchi, wheezing Cardiovascular Exam: normal heart sounds, normal peripheral pulses, tachycardia Gastrointestinal/Abdomen Exam: soft, normal bowel sounds, No tenderness, No mass Back Exam: normal inspection, normal range of motion, No CVA tenderness, No vertebral tenderness Extremity Exam: normal inspection, normal range of motion, pelvis stable Skin Exam: normal color, warm, dry, No rash Lymphatic Exam: No adenopathy Results - Labs Lab/Micro Results: Lab Results-Last 24 Hours 04/27/22 04/27/22 04/27/22 Range/Units 19:30 20:06 20:08 WBC 5.1 (4.0-10.5) x10^3/uL RBC 4.78 (4.1-5.4) x10^6/uL Hgb 14.1 (12.0-16.0) g/dL Hct 46.2 (35-47) % MCV 96.7 (78-100) fL MCH 29.5 (26-32) pg MCHC 30.5 L (32-36) g/dL RDW 15.5 H (11.5-14.0) % Plt Count 173 (150-450) x10^3/uL MPV 11.1 H (7.5-11.0) fL Segmented Neutrophils 64 (36.0-66.0) % Band Neutrophils 4 H (0.0-2.0) % Lymphocytes (Manual) 28 (24-44) % Monocytes (Manual) 4 (0.0-12.0) % Platelet Estimate NORMAL (NORMAL) RBC Morphology NORMAL PT (9.4-12.5) SECONDS INR (0.8-3.0) D-Dimer (0.0-0.50) mg/L Sodium (137-145) mmol/L Potassium (3.5-5.1) mmol/L Chloride (98-107) mmol/L Carbon Dioxide (22-30) mmol/L Anion Gap (5-15) MEQ/L BUN (7-17) mg/dL Creatinine (0.52-1.04) mg/dL Estimated GFR ML/MIN Glucose (74-106) mg/dL POC Glucometer (74 to 106) mg/dL Lactic Acid 0.9 (0.4-2.0) Calcium (8.4-10.2) mg/dL Total Bilirubin (0.2-1.3) mg/dL AST (14-36) U/L ALT (0-35) U/L Alkaline Phosphatase (38-126) U/L Troponin I (0.000-0.034) ng/mL NT-Pro-B Natriuret Pep (0-900) pg/mL Serum Total Protein (6.3-8.2) g/dL Albumin (3.5-5.0) g/dL Prealbumin (17.6-36.0) mg/dL Urinalys Dipstick Clnc Urine Color (YELLOW) Urine Appearance (CLEAR) Urine pH (5-6) Ur Specific Ehrenberg (1.005-1.025) POC Urine Protein Conf (Negative) Urine Ketones (NEGATIVE) Urine Nitrite (NEGATIVE) Urine Bilirubin (NEGATIVE) Urine Urobilinogen (0-1) mg/dL Urine Leukocytes (NEGATIVE) Urine WBC (Auto) (0-5) /HPF Urine RBC (Auto) (0-2) /HPF U Epithel Cells (Auto) (FEW) /HPF Urine Bacteria (Auto) (NEGATIVE) /HPF Urine RBC (0-5) Bart/ul Urine Mucus (Auto) (NEGATIVE) /HPF Ur Culture Indicated? Urine Glucose (NEGATIVE) mg/dL Influenza Type A Ag NEGATIVE (NEGATIVE) Influenza Type B Ag NEGATIVE (NEGATIVE) RSV (PCR) NEGATIVE (Negative) SARS-CoV-2 (PCR) POSITIVE A (NEGATIVE) 04/27/22 04/27/22 04/27/22 Range/Units 20:08 20:08 20:25 WBC (4.0-10.5) x10^3/uL RBC (4.1-5.4) x10^6/uL Hgb (12.0-16.0) g/dL Hct (35-47) % MCV (78-100) fL MCH (26-32) pg MCHC (32-36) g/dL RDW (11.5-14.0) % Plt Count (150-450) x10^3/uL MPV (7.5-11.0) fL Segmented Neutrophils (36.0-66.0) % Band Neutrophils (0.0-2.0) % Lymphocytes (Manual) (24-44) % Monocytes (Manual) (0.0-12.0) % Platelet Estimate (NORMAL) RBC Morphology PT 10.3 (9.4-12.5) SECONDS INR 0.97 (0.8-3.0) D-Dimer 2.28 H* (0.0-0.50) mg/L Sodium 135 L (137-145) mmol/L Potassium 5.1 (3.5-5.1) mmol/L Chloride 106 (98-107) mmol/L Carbon Dioxide 20 L (22-30) mmol/L Anion Gap 14.4 (5-15) MEQ/L BUN 57 H (7-17) mg/dL Creatinine 2.69 H (0.52-1.04) mg/dL Estimated GFR 18.9 ML/MIN Glucose 103 (74-106) mg/dL POC Glucometer (74 to 106) mg/dL Lactic Acid (0.4-2.0) Calcium 8.2 L (8.4-10.2) mg/dL Total Bilirubin 0.70 (0.2-1.3) mg/dL AST 74 H (14-36) U/L ALT 46 H (0-35) U/L Alkaline Phosphatase 78 (38-126) U/L Troponin I 0.040 H* (0.000-0.034) ng/mL NT-Pro-B Natriuret Pep 850 (0-900) pg/mL Serum Total Protein 8.0 (6.3-8.2) g/dL Albumin 4.1 (3.5-5.0) g/dL Prealbumin (17.6-36.0) mg/dL Urinalys Dipstick Clnc Urine Color (YELLOW) Urine Appearance (CLEAR) Urine pH (5-6) Ur Specific Ehrenberg (1.005-1.025) POC Urine Protein Conf (Negative) Urine Ketones (NEGATIVE) Urine Nitrite (NEGATIVE) Urine Bilirubin (NEGATIVE) Urine Urobilinogen (0-1) mg/dL Urine Leukocytes (NEGATIVE) Urine WBC (Auto) (0-5) /HPF Urine RBC (Auto) (0-2) /HPF U Epithel Cells (Auto) (FEW) /HPF Urine Bacteria (Auto) (NEGATIVE) /HPF Urine RBC (0-5) Bart/ul Urine Mucus (Auto) (NEGATIVE) /HPF Ur Culture Indicated? Urine Glucose (NEGATIVE) mg/dL Influenza Type A Ag (NEGATIVE) Influenza Type B Ag (NEGATIVE) RSV (PCR) (Negative) SARS-CoV-2 (PCR) (NEGATIVE) 04/27/22 04/28/22 04/28/22 Range/Units 23:40 00:40 03:33 WBC (4.0-10.5) x10^3/uL RBC (4.1-5.4) x10^6/uL Hgb (12.0-16.0) g/dL Hct (35-47) % MCV (78-100) fL MCH (26-32) pg MCHC (32-36) g/dL RDW (11.5-14.0) % Plt Count (150-450) x10^3/uL MPV (7.5-11.0) fL Segmented Neutrophils (36.0-66.0) % Band Neutrophils (0.0-2.0) % Lymphocytes (Manual) (24-44) % Monocytes (Manual) (0.0-12.0) % Platelet Estimate (NORMAL) RBC Morphology PT (9.4-12.5) SECONDS INR (0.8-3.0) D-Dimer (0.0-0.50) mg/L Sodium (137-145) mmol/L Potassium (3.5-5.1) mmol/L Chloride (98-107) mmol/L Carbon Dioxide (22-30) mmol/L Anion Gap (5-15) MEQ/L BUN (7-17) mg/dL Creatinine (0.52-1.04) mg/dL Estimated GFR ML/MIN Glucose (74-106) mg/dL POC Glucometer 204 H (74 to 106) mg/dL Lactic Acid (0.4-2.0) Calcium (8.4-10.2) mg/dL Total Bilirubin (0.2-1.3) mg/dL AST (14-36) U/L ALT (0-35) U/L Alkaline Phosphatase (38-126) U/L Troponin I 0.041 H* 0.031 (0.000-0.034) ng/mL NT-Pro-B Natriuret Pep (0-900) pg/mL Serum Total Protein (6.3-8.2) g/dL Albumin (3.5-5.0) g/dL Prealbumin (17.6-36.0) mg/dL Urinalys Dipstick Clnc Urine Color (YELLOW) Urine Appearance (CLEAR) Urine pH (5-6) Ur Specific Ehrenberg (1.005-1.025) POC Urine Protein Conf (Negative) Urine Ketones (NEGATIVE) Urine Nitrite (NEGATIVE) Urine Bilirubin (NEGATIVE) Urine Urobilinogen (0-1) mg/dL Urine Leukocytes (NEGATIVE) Urine WBC (Auto) (0-5) /HPF Urine RBC (Auto) (0-2) /HPF U Epithel Cells (Auto) (FEW) /HPF Urine Bacteria (Auto) (NEGATIVE) /HPF Urine RBC (0-5) Bart/ul Urine Mucus (Auto) (NEGATIVE) /HPF Ur Culture Indicated? Urine Glucose (NEGATIVE) mg/dL Influenza Type A Ag (NEGATIVE) Influenza Type B Ag (NEGATIVE) RSV (PCR) (Negative) SARS-CoV-2 (PCR) (NEGATIVE) 04/28/22 04/28/22 04/28/22 Range/Units 03:33 03:33 03:33 WBC 3.1 L (4.0-10.5) x10^3/uL RBC 4.16 (4.1-5.4) x10^6/uL Hgb 12.5 (12.0-16.0) g/dL Hct 40.2 (35-47) % MCV 96.6 (78-100) fL MCH 30.0 (26-32) pg MCHC 31.1 L (32-36) g/dL RDW 15.8 H (11.5-14.0) % Plt Count 157 (150-450) x10^3/uL MPV 11.1 H (7.5-11.0) fL Segmented Neutrophils (36.0-66.0) % Band Neutrophils (0.0-2.0) % Lymphocytes (Manual) (24-44) % Monocytes (Manual) (0.0-12.0) % Platelet Estimate (NORMAL) RBC Morphology PT (9.4-12.5) SECONDS INR (0.8-3.0) D-Dimer 1.11 H* (0.0-0.50) mg/L Sodium 137 (137-145) mmol/L Potassium 5.1 (3.5-5.1) mmol/L Chloride 109 H (98-107) mmol/L Carbon Dioxide 18 L (22-30) mmol/L Anion Gap 14.9 (5-15) MEQ/L BUN 56 H (7-17) mg/dL Creatinine 2.37 H (0.52-1.04) mg/dL Estimated GFR 21.8 ML/MIN Glucose 203 H (74-106) mg/dL POC Glucometer (74 to 106) mg/dL Lactic Acid (0.4-2.0) Calcium 7.6 L (8.4-10.2) mg/dL Total Bilirubin (0.2-1.3) mg/dL AST (14-36) U/L ALT (0-35) U/L Alkaline Phosphatase (38-126) U/L Troponin I (0.000-0.034) ng/mL NT-Pro-B Natriuret Pep (0-900) pg/mL Serum Total Protein (6.3-8.2) g/dL Albumin (3.5-5.0) g/dL Prealbumin 7.32 L (17.6-36.0) mg/dL Urinalys Dipstick Clnc Urine Color (YELLOW) Urine Appearance (CLEAR) Urine pH (5-6) Ur Specific Ehrenberg (1.005-1.025) POC Urine Protein Conf (Negative) Urine Ketones (NEGATIVE) Urine Nitrite (NEGATIVE) Urine Bilirubin (NEGATIVE) Urine Urobilinogen (0-1) mg/dL Urine Leukocytes (NEGATIVE) Urine WBC (Auto) (0-5) /HPF Urine RBC (Auto) (0-2) /HPF U Epithel Cells (Auto) (FEW) /HPF Urine Bacteria (Auto) (NEGATIVE) /HPF Urine RBC (0-5) Bart/ul Urine Mucus (Auto) (NEGATIVE) /HPF Ur Culture Indicated? Urine Glucose (NEGATIVE) mg/dL Influenza Type A Ag (NEGATIVE) Influenza Type B Ag (NEGATIVE) RSV (PCR) (Negative) SARS-CoV-2 (PCR) (NEGATIVE) 04/28/22 04/28/22 04/28/22 Range/Units 03:50 06:52 08:00 WBC (4.0-10.5) x10^3/uL RBC (4.1-5.4) x10^6/uL Hgb (12.0-16.0) g/dL Hct (35-47) % MCV (78-100) fL MCH (26-32) pg MCHC (32-36) g/dL RDW (11.5-14.0) % Plt Count (150-450) x10^3/uL MPV (7.5-11.0) fL Segmented Neutrophils (36.0-66.0) % Band Neutrophils (0.0-2.0) % Lymphocytes (Manual) (24-44) % Monocytes (Manual) (0.0-12.0) % Platelet Estimate (NORMAL) RBC Morphology PT (9.4-12.5) SECONDS INR (0.8-3.0) D-Dimer (0.0-0.50) mg/L Sodium (137-145) mmol/L Potassium (3.5-5.1) mmol/L Chloride (98-107) mmol/L Carbon Dioxide (22-30) mmol/L Anion Gap (5-15) MEQ/L BUN (7-17) mg/dL Creatinine (0.52-1.04) mg/dL Estimated GFR ML/MIN Glucose (74-106) mg/dL POC Glucometer 207 H (74 to 106) mg/dL Lactic Acid (0.4-2.0) Calcium (8.4-10.2) mg/dL Total Bilirubin (0.2-1.3) mg/dL AST (14-36) U/L ALT (0-35) U/L Alkaline Phosphatase (38-126) U/L Troponin I (0.000-0.034) ng/mL NT-Pro-B Natriuret Pep 856 (0-900) pg/mL Serum Total Protein (6.3-8.2) g/dL Albumin (3.5-5.0) g/dL Prealbumin (17.6-36.0) mg/dL Urinalys Dipstick Clnc MAIN LAB Urine Color YELLOW (YELLOW) Urine Appearance CLEAR (CLEAR) Urine pH 5.5 (5-6) Ur Specific Ehrenberg 1.030 A (1.005-1.025) POC Urine Protein Conf 100 A (Negative) Urine Ketones NEGATIVE (NEGATIVE) Urine Nitrite NEGATIVE (NEGATIVE) Urine Bilirubin NEGATIVE (NEGATIVE) Urine Urobilinogen 0.2 (0-1) mg/dL Urine Leukocytes TRACE A (NEGATIVE) Urine WBC (Auto) 51-100 A (0-5) /HPF Urine RBC (Auto) 0-2 (0-2) /HPF U Epithel Cells (Auto) NONE (FEW) /HPF Urine Bacteria (Auto) FEW A (NEGATIVE) /HPF Urine RBC MODERATE A (0-5) Bart/ul Urine Mucus (Auto) SLIGHT A (NEGATIVE) /HPF Ur Culture Indicated? YES Urine Glucose NEGATIVE (NEGATIVE) mg/dL Influenza Type A Ag (NEGATIVE) Influenza Type B Ag (NEGATIVE) RSV (PCR) (Negative) SARS-CoV-2 (PCR) (NEGATIVE) Accuchecks Date 04/28/22 - Radiology Impressions Radiology Exams & Impressions: Radiology Procedures Category Date Time Status CHEST 1 VIEW (PORTABLE) Stat Exams 04/27/22 19:14 Completed RAD/CHEST 1 VIEW (PORTABLE) Indication: Fever. Short of breath. Comparison: April 22, 2021 Portable chest demonstrates new subtle patchy bilateral mid to lower lung airspace opacities and tiny right effusion. Heart not enlarged. Bony thorax intact again with mild osteopenia and degenerative changes. - Other Procedures and Tests Respiratory Therapy 04/28/22 05:19 BiPap/CPAP ROUTINE 04/28/22 05:20 Oxygen Nasal Cannula 4 lpm 04/28/22 05:22 Respiratory Therapy Assessment DAILY Assessment/Plan (1) Acute hypoxemic respiratory failure due to COVID-19 Current Visit: Yes Status: Acute Assessment & Plan: Chief Complaint Diagnosis covid positive Allergies Allergy/AdvReac Type Severity Reaction Status Date / Time Penicillins Allergy Severe Hives Verified 04/27/22 19:13 Sulfa (Sulfonamide Allergy Intermediate Hives Verified 04/27/22 19:13 Antibiotics) [Sulfa(Sulfonamide Antibiotics)] Vital Signs (Last 24 hours) Temp Pulse Resp BP Pulse Ox 04/28/22 12:00 16 04/28/22 11:44 97.7 F 51 L 16 133/69 98 04/28/22 09:57 49 L 14 99 04/28/22 08:00 96.9 F 60 18 120/71 98 04/28/22 07:59 19 04/28/22 07:47 98 04/28/22 06:00 50 L 26 H 96 04/28/22 05:10 67 19 95 04/28/22 04:51 66 28 H 04/28/22 04:00 97.9 F 87 19 118/71 90 L 04/28/22 01:53 56 L 26 H 92 L 04/28/22 01:44 20 04/28/22 00:32 69 24 90 L 04/28/22 00:06 91 L 04/28/22 00:00 99.5 F 65 18 103/55 91 L 04/27/22 21:52 75 23 96 04/27/22 21:31 95 04/27/22 21:00 74 20 116/61 96 04/27/22 20:10 88 24 101/67 95 04/27/22 19:21 22 95 04/27/22 19:14 101.5 F 95 H 24 105/84 96 Home Medications Medication Instructions Recorded Confirmed Last Taken Type No Reportable Medications [No 04/28/22 04/28/22 Unknown History Reported Medications] Current Medications Generic Name Dose Route Start Last Admin Trade Name Freq PRN Reason Stop Dose Admin Albuterol Sulfate 4 puff 04/28/22 05:00 04/28/22 05:05 Albuterol Common Canister Inhaler IH 05/28/22 04:59 4 puff Q4H PRN PRN Administration SHORTNESS OF BREATH/WHEEZING Chlorphenir/Hydrocodone Polistirex 5 ml 04/28/22 00:01 Hydrocodone/Chlorphen P-Stirex 1 Ml Hansa.Er.12h PO 05/28/22 00:00 [id number] PRN COUGH Dexamethasone Sodium Phosphate 8 mg 04/28/22 10:00 04/28/22 07:49 Dexamethasone Sod Phosphate 10 Mg/Ml IV 05/08/22 09:59 8 mg DAILY PAMELA Administration Enoxaparin Sodium 30 mg 04/28/22 10:00 04/28/22 07:49 Enoxaparin Sodium 30 Mg/0.3 Ml Syringe SQ 05/28/22 09:59 30 mg DAILY PAMELA Administration Sodium Chloride 1,000 mls @ 30 mls/hr 04/27/22 19:15 04/28/22 07:50 Sodium Chloride 0.9% 1000 Ml IV 05/27/22 19:14 100 mls/hr .Q24H PAMELA Administration Remdesivir 100 mg/ Sodium 100 mls @ 100 mls/hr 04/28/22 20:00 Chloride IV 05/01/22 20:59 Q24H PAMELA Ceftriaxone Sodium/Dextrose 1 g in 50 mls @ 100 mls/hr 04/28/22 22:00 Rocephin 1 Gm-D5w 50 Ml Bag IV 05/01/22 09:59 QPM PAMELA Azithromycin 500 mg in 250 mls @ 250 mls/hr 04/28/22 22:00 Zithromax 500 Mg/ 250 Ml Nacl Premix IV 05/28/22 09:59 QPM PAMELA Lorazepam 1 mg 04/28/22 00:01 04/28/22 12:39 Lorazepam 2 Mg/1 Ml 2 Mg Vial IV 05/28/22 00:00 1 mg Q4H PRN PRN Administration Anxiety/Sleep Lorazepam 1 mg 04/28/22 00:01 Lorazepam 1 Mg Tablet PO 05/28/22 00:00 Q4H PRN PRN Anxiety/Sleep Morphine Sulfate 4 mg 04/28/22 12:13 Morphine Sulfate 4 Mg/Ml Injection IV 05/03/22 12:12 Q4H PRN PRN PAIN Ondansetron HCl 4 mg 04/28/22 00:01 Ondansetron Hcl 4 Mg/2 Ml Vial IV 05/28/22 00:00 Q6H PRN PRN NAUSEA/VOMITING Pantoprazole Sodium 40 mg 04/28/22 10:00 04/28/22 09:05 Pantoprazole 40 Mg Vial IV 05/28/22 09:59 40 mg Q24H10 PAMELA Administration Discontinued Medications Generic Name Dose Route Start Last Admin Trade Name Freq PRN Reason Stop Dose Admin Acetaminophen 1,000 mg 04/27/22 20:24 04/27/22 20:27 Acetaminophen 500 Mg Tablet PO 04/27/22 20:25 1,000 mg STAT STA Administration Acetaminophen Confirm 04/27/22 20:26 Acetaminophen 500 Mg Tablet Administered 04/27/22 20:27 Dose 1,000 mg .ROUTE .STK-MED ONE Enoxaparin Sodium 40 mg 04/28/22 10:00 Enoxaparin Sodium 40 Mg/0.4 Ml Syringe SQ 05/28/22 09:59 DAILY PAMELA Azithromycin 500 mg in 250 mls @ 250 mls/hr 04/28/22 10:00 04/27/22 22:59 Zithromax 500 Mg/ 250 Ml Nacl Premix IV 11/29/22 09:59 250 mls/hr Q24H10 PAMELA Administration Ceftriaxone Sodium/Dextrose 1 g in 50 mls @ 100 mls/hr 04/28/22 10:00 04/27/22 22:59 Rocephin 1 Gm-D5w 50 Ml Bag IV 05/01/22 09:59 100 mls/hr Q24H10 PAMELA Administration Remdesivir 200 mg/ Sodium 250 mls @ 125 mls/hr 04/28/22 00:01 04/28/22 01:19 Chloride IV 04/28/22 02:00 125 mls/hr ONCE ONE Administration Sodium Chloride Confirm 04/28/22 00:12 Sodium Chloride 0.9% 250 Ml Administered 04/28/22 00:13 Dose 250 mls @ ud IV .STK-MED ONE Remdesivir Confirm 04/28/22 00:12 Remdesivir 100 Mg Vial Administered 04/28/22 00:13 Dose 200 mg IV .STK-MED ONE Intake & Output (Last 24 hours) 04/26/22 04/27/22 04/28/22 04/29/22 11:59 11:59 11:59 11:59 Intake Total 1386 Balance 1386 Weight 108.8 kg Microbiology Results (Last 24 hours) 04/28/22 07:50 Urine, Indwelling Catheter Urine Culture - Pending 04/27/22 20:08 Blood Blood Culture Gram Stain - Pending 04/27/22 20:08 Blood Blood Culture - Pending 04/27/22 20:08 Blood Blood Culture Gram Stain - Pending 04/27/22 20:08 Blood Blood Culture - Pending Laboratory Results (Last 24 hours) 04/28/22 04/28/22 04/28/22 08:00 06:52 03:50 WBC RBC Hgb Hct MCV MCH MCHC RDW Plt Count MPV Segmented Neutrophils Band Neutrophils Lymphocytes (Manual) Monocytes (Manual) Platelet Estimate RBC Morphology PT INR D-Dimer Sodium Potassium Chloride Carbon Dioxide Anion Gap BUN Creatinine Estimated GFR Glucose POC Glucometer 207 H Lactic Acid Calcium Total Bilirubin AST ALT Alkaline Phosphatase Troponin I NT-Pro-B Natriuret Pep 856 Serum Total Protein Albumin Prealbumin Urinalys Dipstick Clnc MAIN LAB Urine Color YELLOW Urine Appearance CLEAR Urine pH 5.5 Ur Specific [place]berg 1.030 A POC Urine Protein Conf 100 A Urine Ketones NEGATIVE Urine Nitrite NEGATIVE Urine Bilirubin NEGATIVE Urine Urobilinogen 0.2 Urine Leukocytes TRACE A Urine WBC (Auto) 51-100 A Urine RBC (Auto) 0-2 U Epithel Cells (Auto) NONE Urine Bacteria (Auto) FEW A Urine RBC MODERATE A Urine Mucus (Auto) SLIGHT A Ur Culture Indicated? YES Urine Glucose NEGATIVE Influenza Type A Ag Influenza Type B Ag RSV (PCR) SARS-CoV-2 (PCR) 04/28/22 04/28/22 04/28/22 03:33 03:33 03:33 WBC 3.1 L RBC 4.16 Hgb 12.5 Hct 40.2 MCV 96.6 MCH 30.0 MCHC 31.1 L RDW 15.8 H Plt Count 157 MPV 11.1 H Segmented Neutrophils Band Neutrophils Lymphocytes (Manual) Monocytes (Manual) Platelet Estimate RBC Morphology PT INR D-Dimer 1.11 H* Sodium 137 Potassium 5.1 Chloride 109 H Carbon Dioxide 18 L Anion Gap 14.9 BUN 56 H Creatinine 2.37 H Estimated GFR 21.8 Glucose 203 H POC Glucometer Lactic Acid Calcium 7.6 L Total Bilirubin AST ALT Alkaline Phosphatase Troponin I NT-Pro-B Natriuret Pep Serum Total Protein Albumin Prealbumin 7.32 L Urinalys Dipstick Clnc Urine Color Urine Appearance Urine pH Ur Specific Ehrenberg POC Urine Protein Conf Urine Ketones Urine Nitrite Urine Bilirubin Urine Urobilinogen Urine Leukocytes Urine WBC (Auto) Urine RBC (Auto) U Epithel Cells (Auto) Urine Bacteria (Auto) Urine RBC Urine Mucus (Auto) Ur Culture Indicated? Urine Glucose Influenza Type A Ag Influenza Type B Ag RSV (PCR) SARS-CoV-2 (PCR) 04/28/22 04/28/22 04/27/22 03:33 00:40 23:40 WBC RBC Hgb Hct MCV MCH MCHC RDW Plt Count MPV Segmented Neutrophils Band Neutrophils Lymphocytes (Manual) Monocytes (Manual) Platelet Estimate RBC Morphology PT INR D-Dimer Sodium Potassium Chloride Carbon Dioxide Anion Gap BUN Creatinine Estimated GFR Glucose POC Glucometer 204 H Lactic Acid Calcium Total Bilirubin AST ALT Alkaline Phosphatase Troponin I 0.031 0.041 H* NT-Pro-B Natriuret Pep Serum Total Protein Albumin Prealbumin Urinalys Dipstick Clnc Urine Color Urine Appearance Urine pH Ur Specific [place] POC Urine Protein Conf Urine Ketones Urine Nitrite Urine Bilirubin Urine Urobilinogen Urine Leukocytes Urine WBC (Auto) Urine RBC (Auto) U Epithel Cells (Auto) Urine Bacteria (Auto) Urine RBC Urine Mucus (Auto) Ur Culture Indicated? Urine Glucose Influenza Type A Ag Influenza Type B Ag RSV (PCR) SARS-CoV-2 (PCR) 04/27/22 04/27/22 04/27/22 20:25 20:08 20:08 WBC RBC Hgb Hct MCV MCH MCHC RDW Plt Count MPV Segmented Neutrophils Band Neutrophils Lymphocytes (Manual) Monocytes (Manual) Platelet Estimate RBC Morphology PT 10.3 INR 0.97 D-Dimer 2.28 H* Sodium 135 L Potassium 5.1 Chloride 106 Carbon Dioxide 20 L Anion Gap 14.4 BUN 57 H Creatinine 2.69 H Estimated GFR 18.9 Glucose 103 POC Glucometer Lactic Acid Calcium 8.2 L Total Bilirubin 0.70 AST 74 H ALT 46 H Alkaline Phosphatase 78 Troponin I 0.040 H* NT-Pro-B Natriuret Pep 850 Serum Total Protein 8.0 Albumin 4.1 Prealbumin Urinalys Dipstick Clnc Urine Color Urine Appearance Urine pH Ur Specific [place] POC Urine Protein Conf Urine Ketones Urine Nitrite Urine Bilirubin Urine Urobilinogen Urine Leukocytes Urine WBC (Auto) Urine RBC (Auto) U Epithel Cells (Auto) Urine Bacteria (Auto) Urine RBC Urine Mucus (Auto) Ur Culture Indicated? Urine Glucose Influenza Type A Ag Influenza Type B Ag RSV (PCR) SARS-CoV-2 (PCR) 04/27/22 04/27/22 04/27/22 20:08 20:06 19:30 WBC 5.1 RBC 4.78 Hgb 14.1 Hct 46.2 MCV 96.7 MCH 29.5 MCHC 30.5 L RDW 15.5 H Plt Count 173 MPV 11.1 H Segmented Neutrophils 64 Band Neutrophils 4 H Lymphocytes (Manual) 28 Monocytes (Manual) 4 Platelet Estimate NORMAL RBC Morphology NORMAL PT INR D-Dimer Sodium Potassium Chloride Carbon Dioxide Anion Gap BUN Creatinine Estimated GFR Glucose POC Glucometer Lactic Acid 0.9 Calcium Total Bilirubin AST ALT Alkaline Phosphatase Troponin I NT-Pro-B Natriuret Pep Serum Total Protein Albumin Prealbumin Urinalys Dipstick Clnc Urine Color Urine Appearance Urine pH Ur Specific [place] POC Urine Protein Conf Urine Ketones Urine Nitrite Urine Bilirubin Urine Urobilinogen Urine Leukocytes Urine WBC (Auto) Urine RBC (Auto) U Epithel Cells (Auto) Urine Bacteria (Auto) Urine RBC Urine Mucus (Auto) Ur Culture Indicated? Urine Glucose Influenza Type A Ag NEGATIVE Influenza Type B Ag NEGATIVE RSV (PCR) NEGATIVE SARS-CoV-2 (PCR) POSITIVE A Orders (Last 24 hours) Category Date Time Status Bedrest with BRP/BSC ROUTINE Activity 04/28/22 00:05 Active Admit as Inpatient ROUTINE Care 04/27/22 21:41 Active Aluminum Siding Mechanic STAT Care 04/27/22 19:15 Completed Catheter Care Record Q6H Care 04/28/22 07:50 Active Catheter-[place] STAT Care 04/28/22 07:50 Active Code Status Order ROUTINE Care 04/27/22 21:41 Active Code Status Order ROUTINE Care 04/28/22 00:01 Active EKG-ER Only STAT Care 04/27/22 19:13 Completed Fall Protocol Q1H Care 04/28/22 00:05 Active IV Care Q6H Care 04/28/22 00:01 Active IV Insertion STAT Care 04/27/22 19:13 Completed IV Insertion-2nd Peripheral STAT Care 04/27/22 19:25 Completed Intake and Output Q12H Care 04/27/22 21:41 Active Isolation, Initiate & Maintain Q6H Care 04/27/22 21:41 Completed Neuro Checks Q4H Care 04/27/22 21:41 Completed Oxygen-ED Only Nasal Cannula 4 lpm Care 04/27/22 19:26 Completed Sequential Compression Device Q6H Care 04/27/22 21:41 Active Rashi Coltone, Apply ROUTINE Care 04/27/22 21:41 Active Telemetry q4h Care 04/27/22 21:41 Active Vital Signs Q4H Care 04/27/22 21:41 Completed Weight,Daily 0600 Care 04/27/22 21:41 Active Clear Liquid Diet 04/28/22 Breakfast Active CHEST 1 VIEW (PORTABLE) Stat Exams 04/27/22 19:14 Completed BLOOD CULTURE Stat Lab 04/27/22 20:08 Received BMP Routine Lab 04/28/22 03:33 Completed CBC DAILY Lab 04/29/22 05:00 Ordered CBC DAILY Lab 04/30/22 05:00 Ordered CBC DAILY Lab 05/01/22 05:00 Ordered CBC DAILY Lab 05/02/22 05:00 Ordered CBC DAILY Lab 05/03/22 05:00 Ordered CBC DAILY Lab 05/04/22 05:00 Ordered CBC DAILY Lab 05/05/22 05:00 Ordered CBC DAILY Lab 05/06/22 05:00 Ordered CBC DAILY Lab 05/07/22 05:00 Ordered CBC DAILY Lab 05/08/22 05:00 Ordered CBC Routine Lab 04/28/22 03:33 Completed CBC W DIFF Stat Lab 04/27/22 20:08 Completed CMP DAILY Lab 04/29/22 05:00 Ordered CMP DAILY Lab 04/30/22 05:00 Ordered CMP DAILY Lab 05/01/22 05:00 Ordered CMP DAILY Lab 05/02/22 05:00 Ordered CMP DAILY Lab 05/03/22 05:00 Ordered CMP DAILY Lab 05/04/22 05:00 Ordered CMP DAILY Lab 05/05/22 05:00 Ordered CMP DAILY Lab 05/06/22 05:00 Ordered CMP DAILY Lab 05/07/22 05:00 Ordered CMP DAILY Lab 05/08/22 05:00 Ordered CMP Stat Lab 04/27/22 20:25 Completed COVID/FLU/RSV Panel Stat Lab 04/27/22 20:06 Completed CULTURE,URINE Urgent Lab 04/28/22 07:50 Ordered D-DIMER QUANTITATIVE DAILY Lab 04/29/22 05:00 Ordered D-DIMER QUANTITATIVE DAILY Lab 04/30/22 05:00 Ordered D-DIMER QUANTITATIVE DAILY Lab 05/01/22 05:00 Ordered D-DIMER QUANTITATIVE DAILY Lab 05/02/22 05:00 Ordered D-DIMER QUANTITATIVE DAILY Lab 05/03/22 05:00 Ordered D-DIMER QUANTITATIVE DAILY Lab 05/04/22 05:00 Ordered D-DIMER QUANTITATIVE DAILY Lab 05/05/22 05:00 Ordered D-DIMER QUANTITATIVE DAILY Lab 05/06/22 05:00 Ordered D-DIMER QUANTITATIVE DAILY Lab 05/07/22 05:00 Ordered D-DIMER QUANTITATIVE DAILY Lab 05/08/22 05:00 Ordered D-DIMER QUANTITATIVE Routine Lab 04/28/22 03:33 Completed D-DIMER QUANTITATIVE Stat Lab 04/27/22 20:08 Completed Lactic Acid Stat Lab 04/27/22 19:30 Completed Manual Differential NC Stat Lab 04/27/22 20:08 Completed NT PRO BNP Routine Lab 04/27/22 20:08 Completed NT PRO BNP Routine Lab 04/28/22 03:50 Completed POCT GLUCOSE Stat Lab 04/28/22 00:40 Completed POCT GLUCOSE Stat Lab 04/28/22 06:52 Completed PREALBUMIN Routine Lab 04/28/22 03:33 Completed PROTIME WITH INR Stat Lab 04/27/22 20:08 Completed TROPONIN Q4H Lab 04/27/22 20:08 Completed TROPONIN Q4H Lab 04/27/22 23:40 Completed TROPONIN Q4H Lab 04/28/22 03:33 Completed UA W/RFX CULTURE Stat Lab 04/28/22 08:00 Completed Acetaminophen 500 mg [Tylenol Extra Strength 500 mg* Med 04/27/22 20:26 Discontinued ] 1,000 mg .ROUTE .STK-MED ONE Acetaminophen 500 mg [Tylenol Extra Strength 500 mg* Med 04/27/22 20:24 Discontinued ] 1,000 mg PO STAT STA Albuterol Common Canister [Ventolin Common Canister* Med 04/28/22 05:00 Active ] 4 puff IH Q4H PRN PRN Azithromycin 500 mg/250 ml [Zithromax 500 MG/ 250 ML Med 04/28/22 10:00 Dis continued NaCl Premix] 500 mg in 250 ml IV Q24H10 Azithromycin 500 mg/250 ml [Zithromax 500 MG/ 250 ML Med 04/28/22 22:00 Active NaCl Premix] 500 mg in 250 ml IV QPM Ceftriaxone 1 GM/50 ML PREMIX* [ROCEPHIN 1 Gm-D5w 50 ml Med 04/28/22 10:00 Discontinued Bag] 1 g in 50 ml IV Q24H10 Ceftriaxone 1 GM/50 ML PREMIX* [ROCEPHIN 1 Gm-D5w 50 ml Med 04/28/22 22:00 Active Bag] 1 g in 50 ml IV QPM Dexamethasone Sod Phosphate [Decadron 10Mg Inj.] Med 04/28/22 10:00 Active 8 mg IV DAILY Enoxaparin Sodium [Enoxaparin Sodium] Med 04/28/22 10:00 Active 30 mg SQ DAILY Enoxaparin Sodium [Enoxaparin Sodium] Med 04/28/22 10:00 Discontinued 40 mg SQ DAILY Hydrocodone/Chlorphen P-Stirex [Hydrocodone-Chlorphen Med 04/28/22 00:01 Active ER Susp] 5 ml PO [id number] PRN Lorazepam 1 mg [Ativan 1 MG] Med 04/28/22 00:01 Active 1 mg PO Q4H PRN PRN Lorazepam 2 mg/1 ml [Ativan 2 MG/1 ML VIAL] Med 04/28/22 00:01 Active 1 mg IV Q4H PRN PRN Morphine Sulfate 4 mg Inj Med 04/28/22 12:13 Active 4 mg IV Q4H PRN PRN NaCl 0.9% 1000 ml [Sodium Chloride 0.9% 1000 ML] 1,000 Med 04/27/22 19:15 Active ml IV 30 mls/hr NaCl 0.9% 250 ml [Sodium Chloride 0.9% 250 ML] 250 ml Med 04/28/22 00:12 Discontinued IV UD Ondansetron HCl 4 mg/2 ml [Zofran 4 MG/2 ML VIAL] Med 04/28/22 00:01 Active 4 mg IV Q6H PRN PRN Pantoprazole 40 mg [Protonix 40 mg IV] Med 04/28/22 10:00 Active 40 mg IV Q24H10 Remdesivir Med 04/28/22 00:12 Discontinued 200 mg IV .STK-MED ONE Remdesivir 100 mg Med 04/28/22 20:00 Active NaCl 0.9% [Sodium Chloride 0.9%] 100 ml IV Q24H Remdesivir 200 mg Med 04/28/22 00:01 Discontinued NaCl 0.9% 250 ml [Sodium Chloride 0.9% 250 ML] 250 ml IV ONCE BiPap/CPAP ROUTINE RT 04/28/22 05:19 Active EKG REPEAT IN AM RT 04/27/22 21:41 Completed Oxygen Nasal Cannula 4 lpm RT 04/28/22 05:20 Active Pulse Oximetry CONTINUOUS RT 04/28/22 00:06 Active Respiratory Therapy Assessment DAILY RT 04/28/22 05:22 Active Respiratory Therapy Consult ROUTINE RT 04/27/22 21:41 Completed Patient Care Notes (Last 24 hours) 04/28/22 04:30 (created 04/28/22 05:23) Nursing Note by Zahra Borrego Nurse entered room and pt was working hard to breath, using accessory muscles and mouth breathing, stating she could not breath. pt's pulse ox was reading 84 % on 4L NC. pt O2 was bumped up to 5L, O2 sats remained 85-86%. respiratory was called and came to room. Pt was placed on 10L oxymask without much improvement, O2 was bumped up to 15L on the oxymask O2 sats came up to 87-88%. decision was made to place pt on Bi-Pap, pt agreed. Pt was placed on AVAPS setting. see respiratory note for Bi-Pap setting. Initialized on 04/28/22 05:23 - END OF NOTE Code(s): U07.1 - COVID-19; J96.01 - ACUTE RESPIRATORY FAILURE WITH HYPOXIA (2) Pneumonia due to COVID-19 virus Current Visit: Yes Status: Acute Assessment & Plan: Last Vital Signs Temp 97.7 F 04/28/22 11:44 Pulse 51 L 04/28/22 11:44 Resp 16 04/28/22 12:00 BP 133/69 04/28/22 11:44 Pulse Ox 98 04/28/22 11:44 Allergies Penicillins Allergy (Severe, Verified 04/27/22 19:13) Hives affected vision, pt stated she couldnt see Sulfa (Sulfonamide Antibiotics) [Sulfa(Sulfonamide Antibiotics)] Allergy (Intermediate, Verified 04/27/22 19:13) Hives Active Medications Albuterol Sulfate (Albuterol Common Canister Inhaler) 4 puff IH Q4H PRN PRN PRN Reason: SHORTNESS OF BREATH/WHEEZING Stop: 05/28/22 04:59 Last Admin: 04/28/22 05:05 Dose: 4 puff Chlorphenir/Hydrocodone Polistirex (Hydrocodone/Chlorphen P-Stirex 1 Ml [place].Er.12h) 5 ml PO [id number] PRN PRN Reason: COUGH Stop: 05/28/22 00:00 Dexamethasone Sodium Phosphate (Dexamethasone Sod Phosphate 10 Mg/Ml) 8 mg IV DAILY PAMELA Stop: 05/08/22 09:59 Last Admin: 04/28/22 07:49 Dose: 8 mg Enoxaparin Sodium (Enoxaparin Sodium 30 Mg/0.3 Ml Syringe) 30 mg SQ DAILY PAMELA Stop: 05/28/22 09:59 Last Admin: 04/28/22 07:49 Dose: 30 mg Sodium Chloride (Sodium Chloride 0.9% 1000 Ml) 1,000 mls @ 30 mls/hr IV .Q24H PAMELA Stop: 05/27/22 19:14 Last Admin: 04/28/22 07:50 Dose: 100 mls/hr Remdesivir 100 mg/ Sodium (Chloride) 100 mls @ 100 mls/hr IV Q24H [facility] Stop: 05/01/22 20:59 Ceftriaxone Sodium/Dextrose (Rocephin 1 Gm-D5w 50 Ml Bag) 1 g in 50 mls @ 100 mls/hr IV QPM [facility] Stop: 05/01/22 09:59 Azithromycin (Zithromax 500 Mg/ 250 Ml Nacl Premix) 500 mg in 250 mls @ 250 mls/hr IV QPM [facility] Stop: 05/28/22 09:59 Lorazepam (Lorazepam 2 Mg/1 Ml 2 Mg Vial) 1 mg IV Q4H PRN PRN PRN Reason: Anxiety/Sleep Stop: 05/28/22 00:00 Last Admin: 04/28/22 12:39 Dose: 1 mg Lorazepam (Lorazepam 1 Mg Tablet) 1 mg PO Q4H PRN PRN PRN Reason: Anxiety/Sleep Stop: 05/28/22 00:00 Morphine Sulfate (Morphine Sulfate 4 Mg/Ml Injection) 4 mg IV Q4H PRN PRN PRN Reason: PAIN Stop: 05/03/22 12:12 Ondansetron HCl (Ondansetron Hcl 4 Mg/2 Ml Vial) 4 mg IV Q6H PRN PRN PRN Reason: NAUSEA/VOMITING Stop: 05/28/22 00:00 Pantoprazole Sodium (Pantoprazole 40 Mg Vial) 40 mg IV Q24H10 [facility] Stop: 05/28/22 09:59 Last Admin: 04/28/22 09:05 Dose: 40 mg Intake & Output 04/28/22 04/29/22 11:59 11:59 Intake Total 1386 Balance 1386 Weight 108.8 kg Orders 04/28/22 07:50 Catheter Care Record Q6H Catheter-[place] STAT CULTURE,URINE Urgent 04/28/22 10:00 Pantoprazole 40 mg [Protonix 40 mg IV] 40 mg IV Q24H10 04/28/22 12:13 Morphine Sulfate 4 mg Inj 4 mg IV Q4H PRN PRN Lab Tests 04/27/22 04/27/2204/27/22 19:30 20:06 20:08 WBC 5.1 RBC 4.78 Hgb 14.1 Hct 46.2 MCV 96.7 MCH 29.5 MCHC 30.5 L RDW 15.5 H Plt Count 173 MPV 11.1 H Segmented Neutrophils 64 Band Neutrophils 4 H Lymphocytes (Manual) 28 Monocytes (Manual) 4 Platelet Estimate NORMAL RBC Morphology NORMAL PT INR D-Dimer Sodium Potassium Chloride Carbon Dioxide Anion Gap BUN Creatinine Estimated GFR Glucose POC Glucometer Lactic Acid 0.9 Calcium Total Bilirubin AST ALT Alkaline Phosphatase Troponin I NT-Pro-B Natriuret Pep Serum Total Protein Albumin Prealbumin Urinalys Dipstick Clnc Urine Color Urine Appearance Urine pH Ur Specific [place] POC Urine Protein Conf Urine Ketones Urine Nitrite Urine Bilirubin Urine Urobilinogen Urine Leukocytes Urine WBC (Auto) Urine RBC (Auto) U Epithel Cells (Auto) Urine Bacteria (Auto) Urine RBC Urine Mucus (Auto) Ur Culture Indicated? Urine Glucose Influenza Type A Ag NEGATIVE Influenza Type B Ag NEGATIVE RSV (PCR) NEGATIVE SARS-CoV-2 (PCR) POSITIVE A 04/27/22 04/27/22 04/27/22 20:08 20:08 20:25 WBC RBC Hgb Hct MCV MCH MCHC RDW Plt Count MPV Segmented Neutrophils Band Neutrophils Lymphocytes (Manual) Monocytes (Manual) Platelet Estimate RBC Morphology PT 10.3 INR 0.97 D-Dimer 2.28 H* Sodium 135 L Potassium 5.1 Chloride 106 Carbon Dioxide 20 L Anion Gap 14.4 BUN 57 H Creatinine 2.69 H Estimated GFR 18.9 Glucose 103 POC Glucometer Lactic Acid Calcium 8.2 L Total Bilirubin 0.70 AST 74 H ALT 46 H Alkaline Phosphatase 78 Troponin I 0.040 H* NT-Pro-B Natriuret Pep 850 Serum Total Protein 8.0 Albumin 4.1 Prealbumin Urinalys Dipstick Clnc Urine Color Urine Appearance Urine pH Ur Specific [place] POC Urine Protein Conf Urine Ketones Urine Nitrite Urine Bilirubin Urine Urobilinogen Urine Leukocytes Urine WBC (Auto) Urine RBC (Auto) U Epithel Cells (Auto) Urine Bacteria (Auto) Urine RBC Urine Mucus (Auto) Ur Culture Indicated? Urine Glucose Influenza Type A Ag Influenza Type B Ag RSV (PCR) SARS-CoV-2 (PCR) 04/27/22 04/28/22 04/28/22 23:40 00:40 03:33 WBC RBC Hgb Hct MCV MCH MCHC RDW Plt Count MPV Segmented Neutrophils Band Neutrophils Lymphocytes (Manual) Monocytes (Manual) Platelet Estimate RBC Morphology PT INR D-Dimer Sodium Potassium Chloride Carbon Dioxide Anion Gap BUN Creatinine Estimated GFR Glucose POC Glucometer 204 H Lactic Acid Calcium Total Bilirubin AST ALT Alkaline Phosphatase Troponin I 0.041 H* 0.031 NT-Pro-B Natriuret Pep Serum Total Protein Albumin Prealbumin Urinalys Dipstick Clnc Urine Color Urine Appearance Urine pH Ur Specific [place] POC Urine Protein Conf Urine Ketones Urine Nitrite Urine Bilirubin Urine Urobilinogen Urine Leukocytes Urine WBC (Auto) Urine RBC (Auto) U Epithel Cells (Auto) Urine Bacteria (Auto) Urine RBC Urine Mucus (Auto) Ur Culture Indicated? Urine Glucose Influenza Type A Ag Influenza Type B Ag RSV (PCR) SARS-CoV-2 (PCR) 04/28/22 04/28/22 04/28/22 03:33 03:33 03:33 WBC 3.1 L RBC 4.16 Hgb 12.5 Hct 40.2 MCV 96.6 MCH 30.0 MCHC 31.1 L RDW 15.8 H Plt Count 157 MPV 11.1 H Segmented Neutrophils Band Neutrophils Lymphocytes (Manual) Monocytes (Manual) Platelet Estimate RBC Morphology PT INR D-Dimer 1.11 H* Sodium 137 Potassium 5.1 Chloride 109 H Carbon Dioxide 18 L Anion Gap 14.9 BUN 56 H Creatinine 2.37 H Estimated GFR 21.8 Glucose 203 H POC Glucometer Lactic Acid Calcium 7.6 L Total Bilirubin AST ALT Alkaline Phosphatase Troponin I NT-Pro-B Natriuret Pep Serum Total Protein Albumin Prealbumin 7.32 L Urinalys Dipstick Clnc Urine Color Urine Appearance Urine pH Ur Specific [place] POC Urine Protein Conf Urine Ketones Urine Nitrite Urine Bilirubin Urine Urobilinogen Urine Leukocytes Urine WBC (Auto) Urine RBC (Auto) U Epithel Cells (Auto) Urine Bacteria (Auto) Urine RBC Urine Mucus (Auto) Ur Culture Indicated? Urine Glucose Influenza Type A Ag Influenza Type B Ag RSV (PCR) SARS-CoV-2 (PCR) 04/28/22 04/28/22 04/28/22 03:50 06:52 08:00 WBC RBC Hgb Hct MCV MCH MCHC RDW Plt Count MPV Segmented Neutrophils Band Neutrophils Lymphocytes (Manual) Monocytes (Manual) Platelet Estimate RBC Morphology PT INR D-Dimer Sodium Potassium Chloride Carbon Dioxide Anion Gap BUN Creatinine Estimated GFR Glucose POC Glucometer 207 H Lactic Acid Calcium Total Bilirubin AST ALT Alkaline Phosphatase Troponin I NT-Pro-B Natriuret Pep 856 Serum Total Protein Albumin Prealbumin Urinalys Dipstick Clnc MAIN LAB Urine Color YELLOW Urine Appearance CLEAR Urine pH 5.5 Ur Specific [place] 1.030 A POC Urine Protein Conf 100 A Urine Ketones NEGATIVE Urine Nitrite NEGATIVE Urine Bilirubin NEGATIVE Urine Urobilinogen 0.2 Urine Leukocytes TRACE A Urine WBC (Auto) 51-100 A Urine RBC (Auto) 0-2 U Epithel Cells (Auto) NONE Urine Bacteria (Auto) FEW A Urine RBC MODERATE A Urine Mucus (Auto) SLIGHT A Ur Culture Indicated? YES Urine Glucose NEGATIVE Influenza Type A Ag Influenza Type B Ag RSV (PCR) SARS-CoV-2 (PCR) Code(s): U07.1 - COVID-19; J12.82 - PNEUMONIA DUE TO CORONAVIRUS DISEASE 2018 (3) Acute on chronic renal insufficiency Current Visit: Yes Status: Acute Code(s): N28.9 - DISORDER OF KIDNEY AND URETER, UNSPECIFIED; N18.9 - CHRONIC KIDNEY DISEASE, UNSPECIFIED (4) COPD exacerbation Current Visit: No Status: Acute Assessment & Plan: Respiratory Therapy 04/28/22 05:19 BiPap/CPAP ROUTINE 04/28/22 05:20 Oxygen Nasal Cannula 4 lpm 04/28/22 05:22 Respiratory Therapy Assessment DAILY Code(s): J44.1 - CHRONIC OBSTRUCTIVE PULMONARY DISEASE W (ACUTE) EXACERBATION
[2022-04-28] MEDS ORDERED: REMDESIVIR 100 MG in Sodium Chloride 0.9% 100 ML IV SCH (20:00)
[2022-04-29 05:40] LABS: Hematocrit 45.2 % (35-47); Hemoglobin 13.6 g/dL (12.0-16.0); Mean Cell Volume 98.5 fL (78-100); Mean Corpuscular Hemoglobin 29.6 pg (26-32); Mean Corpuscular Hgb Concent. 30.1 g/dL (32-36); Mean Platelet Volume 11.1 fL (7.5-11.0); Platelet Count 178 x10^3/uL (150-450); Red Blood Count 4.59 x10^6/uL (4.1-5.4); Red Cell Distribution Width 15.9 % (11.5-14.0); White Blood Count 6.1 x10^3/uL (4.0-10.5)
[2022-04-29 06:25] LABS: ALBUMIN 3.6 g/dL (3.5-5.0); ANION GAP 14.6 MEQ/L (5-15); BILIRUBIN,TOTAL 0.4 mg/dL (0.2-1.3); Calcium 8.1 mg/dL (8.4-10.2); Creatinine 1 1.98 mg/dL (0.52-1.04); EST GLOMERULAR FILTRATION RATE 26.9 ML/MIN; Potassium 5.6 mmol/L (3.5-5.1); Total Protein 7.1 g/dL (6.3-8.2)
[2022-04-29 07:23] LABS: A-aADO2 188; ABG HEMOGLOBIN 13.3; ABG POTASSIUM 5.8 (3.5-5.1); ARTERIAL BLD GAS TIDAL VOLUME 550 cc; ARTERIAL BLOOD GAS BASE EXCESS -8.6 (-2.0-2.0); ARTERIAL BLOOD GAS FIO2 45 %; ARTERIAL BLOOD GAS PCO2 45 mmHg (35-45); ARTERIAL BLOOD GAS PO2 77 mmHg (75-100); CARBOXYHEMOGLOBIN 0.9 % THgb (0.0-6.9); HCO3- 18.8 (22-28); HGB O2 SAT 94.3 g/dF (94-100); Methhemoglobin 0.9 % (1.4-1.5)
[2022-04-29 07:24] LABS: ABG SITE LEFT BRACHIAL; ARTERIAL BLOOD GAS pH 7.23 (7.35-7.45)
--- NOTE | 2022-04-29 09:59 | PCM.DS ---
Discharge Summary Date of Admission: 04/27/22 22:22 Admitting Physician: FRANCE BOO Primary Care Provider: AALIYAH TILLMAN Allergies Allergies Penicillins Allergy (Severe, Verified 04/27/22 19:13) Hives affected vision, pt stated she couldnt see Sulfa (Sulfonamide Antibiotics) [Sulfa(Sulfonamide Antibiotics)] Allergy (Intermediate, Verified 04/27/22 19:13) [facility] Summary - Hospital Course Hospital Course: Ms. Godfrey is a 66 yo patient of Erna Cuenca [facility] PMHx chronic renal failure (3b), COPD, TIA, JONATAN abuse, hypothyroidism, and GERD who came to ER yesterday 2d ago c/o 3d of worsening cough and illness. Found to be covid positive with PNA (CXR with subtle patchy bilat mid-lower lung airspace dz). Renal function much decreased with eGFR 18.9. She was admitted through ER on IV rocephin and zithromax. Started on IV remdesivir and dexamthasone (8mg/d). Also on lovenox 40mg SQ daily (d-dimer elevated but not steadily increasing). She went on bipap (AVAPs) yesterday morning. Has not been able to come off of that. O2 sats in mid 90s, but her ABG this morning with pH 7.23, O2 77, K+ 5.8. Stat CXR is pending. She will be transferred to [facility] under Dr. Harry Shelby, thank you. - Vitals & Intake/Output Vital Signs: Vital Signs Temperature 97.3 F 04/29/22 08:00 Pulse Rate 56 L 04/29/22 08:00 Respiratory Rate 15 04/29/22 08:00 Blood Pressure 134/59 04/29/22 08:00 O2 Sat by Pulse Oximetry 99 04/29/22 08:00 Intake & Output: Intake & Output 04/26/22 04/27/22 04/28/22 04/29/22 11:59 11:59 11:59 11:59 Intake Total 1386 2141 Output Total 1100 Balance 1386 1041 Weight 108.8 kg - Lab Result Diagrams: 04/29/22 05:38 04/29/22 05:38 Lab Results-Last 24 Hrs: Lab Results-Last 24 Hours 10/04/29/22 04/29/22 Range/Units 05:38 05:38 05:38 WBC 6.1 (4.0-10.5) x10^3/uL RBC 4.59 (4.1-5.4) x10^6/uL Hgb 13.6 (12.0-16.0) g/dL Hct 45.2 (35-47) % MCV 98.5 (78-100) fL MCH 29.6 (26-32) pg MCHC 30.1 L (32-36) g/dL RDW 15.9 H (11.5-14.0) % Plt Count 178 (150-450) x10^3/uL MPV 11.1 H (7.5-11.0) fL D-Dimer 2.06 H* (0.0-0.50) mg/L Puncture Site pCO2 (35-45) mmHg pO2 (75-100) mmHg Base Excess (-2.0-2.0) O2 Saturation (94-100) g/dF ABG pH (7.35-7.45) ABG HCO3 (22-28) ABG O2 Sat (Measured) (95-100) % Ted Test A-a Gradient a/A Ratio Hemoglobin Carboxyhemoglobin (0.0-6.9) % THgb Methemoglobin (1.4-1.5) % Temperature C POC O2 Flow Rate % Tidal Volume cc PEEP cmH2O Sodium 143 (137-145) mmol/L Potassium 5.6 H (3.5-5.1) mmol/L Chloride 114 H (98-107) mmol/L Carbon Dioxide 20 L (22-30) mmol/L Anion Gap 14.6 (5-15) MEQ/L BUN 61 H (7-17) mg/dL Creatinine 1.98 H (0.52-1.04) mg/dL Estimated GFR 26.9 ML/MIN Glucose 127 H (74-106) mg/dL Calcium 8.1 L (8.4-10.2) mg/dL Total Bilirubin 0.40 (0.2-1.3) mg/dL AST 51 H (14-36) U/L ALT 38 H (0-35) U/L Alkaline Phosphatase 64 (38-126) U/L Serum Total Protein 7.1 (6.3-8.2) g/dL Albumin 3.6 (3.5-5.0) g/dL 04/29/22 Range/Units 07:15 WBC (4.0-10.5) x10^3/uL RBC (4.1-5.4) x10^6/uL Hgb (12.0-16.0) g/dL Hct (35-47) % MCV (78-100) fL MCH (26-32) pg MCHC (32-36) g/dL RDW (11.5-14.0) % Plt Count (150-450) x10^3/uL MPV (7.5-11.0) fL D-Dimer (0.0-0.50) mg/L Puncture Site LEFT BRACHIAL pCO2 45 (35-45) mmHg pO2 77 (75-100) mmHg Base Excess -8.6 L (-2.0-2.0) O2 Saturation 94.3 (94-100) g/dF ABG pH 7.23 L* (7.35-7.45) ABG HCO3 18.8 L (22-28) ABG O2 Sat (Measured) 96.0 (95-100) % Ted Test NOT APPLICABLE A-a Gradient 188 a/A Ratio 0.29 Hemoglobin 13.3 Carboxyhemoglobin 0.9 (0.0-6.9) % THgb Methemoglobin 0.9 L (1.4-1.5) % Temperature 37.0 C POC O2 Flow Rate 45 % Tidal Volume 550 cc PEEP 10.0 cmH2O Sodium (137-145) mmol/L Potassium 5.8 H (3.5-5.1) mmol/L Chloride (98-107) mmol/L Carbon Dioxide (22-30) mmol/L Anion Gap (5-15) MEQ/L BUN (7-17) mg/dL Creatinine (0.52-1.04) mg/dL Estimated GFR ML/MIN Glucose (74-106) mg/dL Calcium (8.4-10.2) mg/dL Total Bilirubin (0.2-1.3) mg/dL AST (14-36) U/L ALT (0-35) U/L Alkaline Phosphatase (38-126) U/L Serum Total Protein (6.3-8.2) g/dL Albumin (3.5-5.0) g/dL Micro Results-Entire Visit: Microbiology 04/28/22 08:10 Urine Culture - Final Urine, Indwelling Catheter <10K NORMAL SKIN DARRON PROBABLE SKIN CONTAMINANT 04/27/22 20:08 Blood Culture - Preliminary Blood NO GROWTH TO DATE 04/27/22 20:08 Blood Culture - Preliminary Blood NO GROWTH TO DATE - Radiology Exams Ordered Rad Exams-Entire Visit: Radiology Procedures Category Date Time Status CHEST 1 VIEW (PORTABLE) Stat Exams 04/27/22 19:14 Completed CHEST 1 VIEW (PORTABLE) Stat Exams 04/29/22 09:50 Ordered - Procedures and Test Procedures and Tests throughout Hospitalization: Therapy Orders & Screens 04/27/22 21:41 EKG REPEAT IN AM Comment: Respiratory Therapy Consult ROUTINE Comment: Reason For Exam: 04/28/22 05:19 BiPap/CPAP ROUTINE Comment: Diagnosis: covid positive 04/28/22 05:20 Oxygen Nasal Cannula 4 lpm Comment: Diagnosis: covid positive 04/28/22 05:22 Respiratory Therapy Assessment DAILY Comment: Diagnosis: covid positive Discharge Exam General Appearance: mild distress (Doesn't feel well), alert Neurologic Exam: disoriented (not oriented to month), other (on bipap) Eye Exam: eyes nml inspection Ears, Nose, Throat Exam: moist mucous membranes Neck Exam: normal inspection Respiratory Exam: diminished breath sounds, No normal breath sounds (poor air exchange), No crackles/rales, No rhonchi, No wheezing Cardiovascular Exam: regular rate/rhythm, normal heart sounds, No murmur Gastrointestinal/Abdomen Exam: soft, No normal bowel sounds (overactive), No tenderness, No distention, No mass, No guarding, No rebound Extremity Exam: other (SCDs in place bilat. feet without edema) Skin Exam: normal color, warm, dry, No rash Final Diagnosis/Problem List - Final Discharge Diagnosis/Problem (1) Acute hypoxemic respiratory failure due to COVID-19 Current Visit: Yes Status: Acute Assessment & Plan: On AVAPs wtih TV 500, Rate 16, 60% O2 and PEEP 10. Needs pulmonary consult, u navailable here currently. Will transfer to [facility], Dr. Shelby, thank you, with Dr. Ramos to consult. On remdesivir, dexamethasone, lovenox 40/d. Code(s): U07.1 - COVID-19; J96.01 - ACUTE RESPIRATORY FAILURE WITH HYPOXIA (2) Pneumonia due to COVID-19 virus Current Visit: Yes Status: Acute Assessment & Plan: on rocephin and zithromax, day #3. Code(s): U07.1 - COVID-19; J12.82 - PNEUMONIA DUE TO CORONAVIRUS DISEASE 2019 (3) Hyperkalemia Current Visit: Yes Status: Acute Assessment & Plan: will go ahead with 20mg IV lasix x 1. Code(s): E87.5 - HYPERKALEMIA (4) Acute on chronic renal insufficiency Current Visit: Yes Status: Acute Code(s): N28.9 - DISORDER OF KIDNEY AND URETER, UNSPECIFIED; N18.9 - CHRONIC KIDNEY DISEASE, UNSPECIFIED (5) COPD (chronic obstructive pulmonary disease) Current Visit: Yes Status: Acute (6) Hypothyroid Current Visit: Yes Status: Acute Code(s): E03.9 - HYPOTHYROIDISM, UNSPECIFIED (7) Bradycardia Current Visit: No Status: Acute Assessment & Plan: HR down to 40s at time Code(s): R00.1 - BRADYCARDIA, UNSPECIFIED (8) Obesity Current Visit: No Status: Chronic Code(s): E66.9 - OBESITY, UNSPECIFIED - [facility]charge Disposition[facility] Condition: Serious Prescriptions: No Action No Reportable Medications [No Reported Medications] Follow up with: AALIYAH TILLMAN [Primary Care Provider] -
[2022-04-29] MEDS ORDERED: Lasix 20 MG/2 ML IV ONE (10:10)
--- NOTE | 2022-04-29 10:29 | XRAY ---
Indication: Respiratory difficulty. Comparison: April 27, 2022 Portable chest demonstrates mild improvement in the bilateral mid to lower lung patchy airspace disease and right effusion. Remaining heart and lungs unremarkable.
[2022-04-29] MEDS ORDERED: Lactated Ringers 1,000 ML IV SCH (10:30)
[2022-04-29] MEDS: PROTONIX 40 MG IV IV SCH (10:37)
[2022-04-29] MEDS: DECADRON 10MG INJ. IV SCH (10:37)
[2022-04-29] MEDS: ENOXAPARIN SODIUM SQ SCH (10:37)
[2022-04-29 11:25] VITALS: BP 108/69
[2022-04-29 12:11] VITALS: PULSE 49; O2SAT 100
== END 2022-04-29 12:40 | disposition short-term general hospital (02) | DRG 177 ==
LOC: ED 19:08 → MED SURG 22:22
PROVIDERS: ADMIT General Practice; ATTEND Family Medicine
DX: U07.1 COVID-19 (principal); J12.82 Pneumonia due to coronavirus disease 2019; E87.5 Hyperkalemia; N18.32 Chronic kidney disease, stage 3b; N28.9 Disorder of kidney and ureter, unspecified; J44.9 Chronic obstructive pulmonary disease, unspecified; E03.9 Hypothyroidism, unspecified; R00.1 Bradycardia, unspecified; E66.9 Obesity, unspecified; Z72.0 Tobacco use; Z79.899 Other long term (current) drug therapy; Z20.828 Contact with and (suspected) exposure to other viral communicable diseases
CPT/HCPCS: 0241U; 36000; 36415; 36600; 71045; 80048; 80053; 81015; 82375; 82803; 82947; 83605; 83880; 84134; 84484; 85025; 85027; 85379; 85610; 87040; 87086; 93005; 93041; 94002; 94003; 94640; 94762; 99284; J0248; J0456; J0696; J1100; J1650; J1940; J2060; J2270; A9270-GY